=== PATIENT | female | born 1990 | race Caucasian/White ===

== ENCOUNTER 2020-08-11 19:16 | Emergency (ER) | payer OTHER, SELFPAY ==
[2020-08-11] VITALS (12 sets, daily range): BP systolic 130–161; BP diastolic 65–92; PULSE 91–104; RESP 13–33; TEMP 37.1; O2SAT 99–100
--- NOTE | 2020-08-11 19:55 | PC.NURSE ---
provider at bedside. spoke with patient's OB physician.
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
== END 2020-08-11 20:35 | disposition home or self-care (01) ==
PROVIDERS: Emergency Provider Emergency Medicine
DX: O9A.212 Injury, poisoning and certain other consequences of external causes complicating pregnancy, second trimester (principal); S80.12XA Contusion of left lower leg, initial encounter; Z3A.22 22 weeks gestation of pregnancy; V49.40XA Driver injured in collision with unspecified motor vehicles in traffic accident, initial encounter
CPT/HCPCS: 99282

== ENCOUNTER 2020-08-18 11:04 | Observation (INO) | payer OTHER, SELFPAY ==
[2020-08-18 11:20] VITALS: BP 156/78; PULSE 101
[2020-08-18 11:29] VITALS: BMI 34.6
--- NOTE | 2020-08-18 11:30 | OBADM ---
This patient, Jessica Conway, admitted to the OB room OB Post 117 for observation. Patient/family oriented to hospital policies and general routines including ID bracelet, bed and alarms, visiting hours, pain management, procedures, bathroom and other care routines, personal items, smoking policy, room service/diet, and visiting hours. Patient/Family are encouraged to report perceived risks to care and to ask questions if they do not understand what they are told or what they should do.
[2020-08-18 11:31] VITALS: BP 123/73; PULSE 92
[2020-08-18 11:41] LABS: Add Urine Microscopic? YES; Appearance Urine Clear (Clear); Bacteria Urine Trace /hpf; Bilirubin Urine Negative (Negative); Blood Urine Negative (Negative); Calcium Oxalate Crystals Urine Present /hpf; Color Urine Yellow (Yellow); Glucose Urine UA Negative (Negative); Ketones Urine Negative (Negative); Leukocyte Esterase Ur Negative LEU/UL (Negative); Mucus Urine Rare /lpf; Nitrate Urine Negative (Negative); Protein Urine 1+ mg/dL (Negative); RBC Urine 0-2 /hpf (0-2); Specific Grav Ur 1.024 (1.001-1.035); Squamous Epithelial Cell Urine Few /hpf (Few); Urobilinogen Urine Negative mg/dL (<2.0); WBC Urine 0-3 /hpf
[2020-08-18 11:45] VITALS: BP 128/71; PULSE 81
[2020-08-18 11:48] VITALS: BP 128/71; PULSE 84
--- NOTE | 2020-08-18 11:54 | PC.NURSE ---
Dr. Liao notified regarding patient's arrival, complaint, reassuring FHR tracing, absence of contractions, and urinalysis results. Received orders to discharge patient to home and to encourage patient to increase fiber intake and to start taking 100 mg colace BID.
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
--- NOTE | 2020-08-24 06:15 | PM.OBTRLD ---
OB - Triage/Final Diagnosis Visit Information Date of evaluation: 08/20/20 Reason for evaluation: threatened labor Evaluation Laboratory results: Laboratory Tests 08/18/20 11:33 Urine Color Yellow Urine Appearance Clear Urine pH 7.0 Ur Specific [place] 1.024 Urine Protein 1+ H Urine Glucose (UA) Negative Urine Ketones Negative Ur Blood (Man) Negative Urine Nitrate Negative Urine Bilirubin Negative Urine Urobilinogen Negative Leukocyte Esterase Rfl Negative Urine RBC 0-2 Urine WBC 0-3 Ur Squamous Epith Cells Few Calcium Oxalate Crystal Present Urine Bacteria Trace Urine Mucus Rare
== END 2020-08-18 12:10 | disposition home or self-care (01) ==
PROVIDERS: Admitting Provider Obstetrics & Gynecology; Visit Provider Obstetrics & Gynecology
DX: Z04.1 Encounter for examination and observation following transport accident (principal); O26.899 Other specified pregnancy related conditions, unspecified trimester; O47.9 False labor, unspecified; Z3A.00 Weeks of gestation of pregnancy not specified
CPT/HCPCS: 59025; 81001; G0378; G0379

== ENCOUNTER 2020-12-08 05:28 | Inpatient (IN) | payer OTHER, SELFPAY ==
[2020-12-08] VITALS (170 sets, daily range): BP systolic 101–162; BP diastolic 52–135; PULSE 25–262; TEMP 36.7–37.5; O2SAT 72–100; BMI 38.9
--- NOTE | 2020-12-08 05:32 | PM.IMHP ---
H&P: HPI History of Present Illness Date/Time: 12/08/20 05:32 Chief Complaint: mil/gesty htn Narrative: Jessica Conway is a 30 year old female whose last menstrual period was 03/10/2020, EDC is 12/05 confirmed ultrasound presents at term for induction labor. She has had worsening blood pressures. She is negative for group B strep. She will undergo PIH labs with expected spontaneous vaginal delivery. Review of Systems Review of Systems: All systems reviewed & are unremarkable except as noted in HPI and below PMFSH Family History Family History Father Osteoarthritis Alcohol abuse Hypertension Mother Hypertension Diabetes mellitus History of heart attack Sibling Johny's disease Other Patient's mother is Social History Social History Substance use: never Spiritual care concerns: No Meds Home Medications and Allergies Home Medications Medication Instructions Recorded Confirmed Type Daily 08/18/20 History acetaminophen [Tylenol] 1,000 mg PO PRN PRN 08/18/20 08/18/20 History cetirizine [Zyrtec] 10 mg PO DAILY 08/18/20 08/18/20 History famotidine [Pepcid AC] 20 mg PO HS 11/09/20 11/09/20 History Allergies Allergy/AdvReac Type Severity Reaction Status Date / Time No Known Allergies Allergy Verified 11/09/20 12:40 Exam Const: General: no acute distress Eyes: General: appearance normal, both eyes and all related structures Neck: Neck: supple and no JVD Thyroid: thyroid normal Resp: Effort & Inspection: normal respiratory effort Auscultation: clear to auscultation bilaterally Cardio: Rate: regular rate Rhythm: regular rhythm GI: Inspection: non-distended GI Palp: Yes Soft to palpation, No Tenderness to palpation present (GI) and No Guarding due to palpation present (GI) Auscultation: normal bowel sounds : General: Yes bladder normal to palpation External Female Exam: normal external appearance Speculum Exam - Cervix: normal appearance of the cervix ( Cervix is 1cm 50% effaced. FHTs reassuring) Skin: General skin exam: no rashes or lesions noted Extrem: General: normal to inspection and no edema Psych: Mental Status: mental status grossly normal Affect: normal affect Assessment and Plan Additional Plan impression: 39 and half week with elevated blood pressures and suspected gestational hypertension Plan: medical induction of labor. PIH labs will be drawn. Spontaneous vaginal delivery is expected. She has an epidural candidate
--- NOTE | 2020-12-08 05:42 | WPDOBADMIT ---
Obstetrics - Admit Note Admission Note: record reviewed. No pertinent additions to the history and/or any subsequent changes in the physical findings that are not consistent with the expected course of the were found. Additions to the history and/or subsequent changes in the physical findings follow. None. cx 1.5/50/-2 arom clear fhts reassuring
[2020-12-08 06:42] LABS: Basophils Percent Auto 0.2 % (0.2-1.2); Eosinophils Absolute Auto 0.1 K/mm3 (0-0.3); Eosinophils Percent Auto 0.8 % (0-4.4); Hematocrit 33.7 % (37.0-47.0); Hemoglobin 11.3 g/dL (12.0-15.0); Immature Granulocyte Absolute 0.04 K/mm3 (0.00-0.031); Immature Granulocyte Percent A 0.4 % (0-0.5); Lymphocytes Absolute Auto 1.43 K/mm3 (0.9-3.2); Lymphocytes Percent Auto 15.1 % (18.3-44.2); Mean Corpuscular HGB Conc 33.5 g/dl (32-36); Mean Corpuscular Hemoglobin 29.4 pg (26-34); Mean Corpuscular Volume 87.5 fl (80-100); Mean Platelet Volume 10.1 fl (7.4-10.4); Monocytes Absolute Auto 0.5 K/mm3 (0.1-0.6); Neutrophils Absolute Auto 7.4 K/mm3 (1.3-6.7); Neutrophils Percent Auto 78.5 % (45.5-73.1); Platelet Count Result 319 k/mm3 (150-375); Red Blood Count 3.85 M/mm3 (4.2-5.4); Red Cell Distribution Width 14.1 % (11.5-14.5); White Blood Count 9.5 K/mm3 (4.5-10.0)
[2020-12-08 06:50] LABS: Alanine Aminotransferase 16 U/L (4-35); Albumin Level 3.4 g/dL (3.5-5.1); Alkaline Phosphatase 207 U/L (38-126); Anion Gap 9 mmol/L (8-16); Aspartate Amino Transferase 23 U/L (14-36); Bilirubin,Total 0.2 mg/dL (0.2-1.3); Blood Urea Nitrogen 12 mg/dL (7-17); Calcium 8.2 mg/dL (8.4-10.2); Carbon Dioxide 18 mmol/L (22-30); Chloride 107 mmol/L (98-107); Estimated Glomerular Filt Rate > 60; Glucose 151 mg/dL (65-105); Potassium 3.7 mmol/L (3.4-5.0); Sodium 134 mmol/L (137-145)
[2020-12-08] MEDS: OXYTOCIN 30 UNITS/NS 500 ML 30 UNITS/500 ML BAG 6 UNITS IV CONT (07:11)
[2020-12-08] MEDS: LACTATED RINGERS 1,000 ML 125 ML IV CONT ×4 (07:11→18:52)
[2020-12-08 07:21] LABS: Uric Acid 3.7 mg/dL (2.5-7.5)
[2020-12-08 07:30] LABS: HIV 1/2 Ab P24 Ag Result Negative (Negative)
--- NOTE | 2020-12-08 08:58 | LDADM ---
This patient, Jessica Conway, was admitted to Labor/Delivery/Recovery 103 on 12/08/20 at 05:28. Plans for labor, pain management and were discussed with patient. Patient/family oriented to hospital policies and general routines including ID bracelet, bed and alarms, visiting hours, pain management, procedures, bathroom and other care routines, personal items, smoking policy, room service/diet and guest tray routines, infant security routines, call light, and visiting hours. Patient/Family are encouraged to report perceived risks to care and to ask questions if they do not understand what they are told or what they should do. See OBIX for further documentation.
--- NOTE | 2020-12-08 09:27 | WPDANESEPP ---
Anes - Eval Pre Procedure Procedure: labor epidural Date/Time: 12/08/20 09:27 Surgeon: lizbeth ceron Pre Op Diagnosis: Induction of Labor Patient Data Age: 30 Gender: F Height: 1.63 m Weight: 103 kg Last Vital Signs Pulse 99 12/08/20 08:01 BP 127/84 12/08/20 08:01 Allergies Allergy/AdvReac Type Severity Reaction Status Date / Time No Known Allergies Allergy Verified 11/09/20 12:40 Home Medications Medication Instructions Recorded Confirmed Type Daily 08/18/20 History acetaminophen [Tylenol] 1,000 mg PO PRN PRN 08/18/20 08/18/20 History cetirizine [Zyrtec] 10 mg PO DAILY 08/18/20 08/18/20 History famotidine [Pepcid AC] 20 mg PO HS 11/09/20 11/09/20 History Laboratory Tests 12/08/20 12/08/20 12/08/20 06:26 06:26 06:26 WBC 9.5 K/mm3 K/mm3 (4.5-10.0) RBC 3.85 M/mm3 L M/mm3 (4.2-5.4) Hgb 11.3 g/dL L g/dL (12.0-15.0) Hct 33.7 % L % (37.0-47.0) MCV 87.5 fl fl (80-100) MCH 29.4 pg pg (26-34) MCHC 33.5 g/dl g/dl (32-36) RDW 14.1 % % (11.5-14.5) Plt Count 319 k/mm3 k/mm3 (150-375) MPV 10.1 fl fl (7.4-10.4) Immature Gran % (Auto) 0.4 % % (0-0.5) Neut % (Auto) 78.5 % H % (45.5-73.1) Lymph % (Auto) 15.1 % L % (18.3-44.2) [place] % (Auto) 5.0 % % (2.6-8.5) Eos % (Auto) 0.8 % % (0-4.4) Baso % (Auto) 0.2 % % (0.2-1.2) Lymph # (Auto) 1.43 K/mm3 K/mm3 (0.9-3.2) [place] # (Auto) 0.5 K/mm3 K/mm3 (0.1-0.6) Eos # (Auto) 0.1 K/mm3 K/mm3 (0-0.3) Baso # (Auto) 0.0 K/mm3 K/mm3 (0.0-0.1) Abs Immat Gran (auto) 0.04 K/mm3 H K/mm3 (0.00-0.031) Absolute Neuts (auto) 7.4 K/mm3 H K/mm3 (1.3-6.7) Absolute Nucleated RBC 0.0 K/mm3 K/mm3 (0.0-0.012) Nucleated RBC % 0.0 % % (0.0-0.2) Sodium Potassium Chloride Carbon Dioxide Anion Gap BUN Creatinine Estim Creat Clear Calc Estimated GFR Glucose Uric Acid 3.7 mg/dL mg/dL (2.5-7.5) Calcium Total Bilirubin AST ALT Alkaline Phosphatase Total Protein Albumin RPR Pending HIV 1&2 Ab/P24 Ag 4thGn Blood Type Antibody Screen 12/08/20 12/08/20 12/08/20 06:26 06:26 06:26 WBC RBC Hgb Hct MCV MCH MCHC RDW Plt Count MPV Immature Gran % (Auto) Neut % (Auto) Lymph % (Auto) [place] % (Auto) Eos % (Auto) Baso % (Auto) Lymph # (Auto) [place] # (Auto) Eos # (Auto) Baso # (Auto) Abs Immat Gran (auto) Absolute Neuts (auto) Absolute Nucleated RBC Nucleated RBC % Sodium 134 mmol/L L mmol/L (137-145) Potassium 3.7 mmol/L mmol/L (3.4-5.0) Chloride 107 mmol/L mmol/L (98-107) Carbon Dioxide 18 mmol/L L mmol/L (22-30) Anion Gap 9 mmol/L mmol/L (8-16) BUN 12 mg/dL mg/dL (7-17) Creatinine 0.50 mg/dL L mg/dL (0.7-1.0) Estim Creat Clear Calc Not Reportable Estimated GFR > 60 (59 - ) Glucose 151 mg/dL H mg/dL (65-105) Uric Acid Calcium 8.2 mg/dL L mg/dL (8.4-10.2) Total Bilirubin 0.2 mg/dL mg/dL (0.2-1.3) AST 23 U/L U/L (14-36) ALT 16 U/L U/L (4-35) Alkaline Phosphatase 207 U/L H U/L (38-126) Total Protein 7.0 g/dL g/dL (6.3-8.2) Albumin 3.4 g/dL L g/dL (3.5-5.
--- NOTE | 2020-12-08 16:19 | P.PNOB_ITS ---
OB - PN: Subj Subjective Date/time seen: 12/08/20 16:19 cx 4 by rn exam fhts ok/earlier decels gone OB - PN: Obj Data Labs CBC & Chem 7: 12/08/20 06:26 12/08/20 06:26 Labs: Laboratory Results - last 24 hr 12/08/20 12/08/20 12/08/20 06:26 06:26 06:26 WBC 9.5 RBC 3.85 L Hgb 11.3 L Hct 33.7 L MCV 87.5 MCH 29.4 MCHC 33.5 RDW 14.1 Plt Count 319 MPV 10.1 Immature Gran % (Auto) 0.4 Neut % (Auto) 78.5 H Lymph % (Auto) 15.1 L [place] % (Auto) 5.0 Eos % (Auto) 0.8 Baso % (Auto) 0.2 Lymph # (Auto) 1.43 [place] # (Auto) 0.5 Eos # (Auto) 0.1 Baso # (Auto) 0.0 Abs Immat Gran (auto) 0.04 H Absolute Neuts (auto) 7.4 H Absolute Nucleated RBC 0.0 Nucleated RBC % 0.0 Sodium Potassium Chloride Carbon Dioxide Anion Gap BUN Creatinine Estim Creat Clear Calc Estimated GFR Glucose Uric Acid 3.7 Calcium Total Bilirubin AST ALT Alkaline Phosphatase Total Protein Albumin HIV 1&2 Ab/P24 Ag 4thGn Negative Blood Type Antibody Screen 12/08/20 12/08/20 06:26 06:26 WBC RBC Hgb Hct MCV MCH MCHC RDW Plt Count MPV Immature Gran % (Auto) Neut % (Auto) Lymph % (Auto) [place] % (Auto) Eos % (Auto) Baso % (Auto) Lymph # (Auto) [place] # (Auto) Eos # (Auto) Baso # (Auto) Abs Immat Gran (auto) Absolute Neuts (auto) Absolute Nucleated RBC Nucleated RBC % Sodium 134 L Potassium 3.7 Chloride 107 Carbon Dioxide 18 L Anion Gap 9 BUN 12 Creatinine 0.50 L Estim Creat Clear Calc Not Reportable Estimated GFR > 60 Glucose 151 H Uric Acid Calcium 8.2 L Total Bilirubin 0.2 AST 23 ALT 16 Alkaline Phosphatase 207 H Total Protein 7.0 Albumin 3.4 L HIV 1&2 Ab/P24 Ag 4thGn Blood Type O Positive Antibody Screen Negative OB - PN A/P Time Spent With Patient Time: Total time spent is greater than 50% in coordination of care (as documente d) at patient's floor/unit and/or counseling patient:
--- NOTE | 2020-12-08 18:26 | PC.NURSE ---
Cheryl Baig RN reported new LR liter bag hung at 1540. (bag #3)
[2020-12-08] MEDS: ONDANSETRON INJ 4 MG/2 ML VIAL IV PUSH (19:04)
[2020-12-08] MEDS: SODIUM CHLORIDE 0.9% IV 300 ML 600 ML I-UTERINE (19:33)
[2020-12-08] MEDS: SODIUM CHLORIDE 0.9% IV 1,000 ML 150 ML I-UTERINE (20:15)
[2020-12-08] MEDS: FAMOTIDINE 20 MG/2 ML VIAL IV PUSH (22:41)
[2020-12-09] VITALS (57 sets, daily range): BP systolic 117–140; BP diastolic 59–84; PULSE 94–118; RESP 16–20; TEMP 36.3–38.1; O2SAT 97–100
[2020-12-09] MEDS: AMPICILLIN 2 GM/NS 100 ML 2 GM/100 ML BAG IVPB (00:30)
--- NOTE | 2020-12-09 01:36 | P.PNOB_ITS ---
OB - PN: Subj Subjective Date/time seen: 12/09/20 01:36 cx 8 no further change despite good ucs offered section risks/benefits given OB - PN: Obj Data Labs CBC & Chem 7: 12/08/20 06:26 12/08/20 06:26 Labs: Laboratory Results - last 24 hr 12/08/20 12/08/20 12/08/20 06:26 06:26 06:26 WBC 9.5 RBC 3.85 L Hgb 11.3 L Hct 33.7 L MCV 87.5 MCH 29.4 MCHC 33.5 RDW 14.1 Plt Count 319 MPV 10.1 Immature Gran % (Auto) 0.4 Neut % (Auto) 78.5 H Lymph % (Auto) 15.1 L [place] % (Auto) 5.0 Eos % (Auto) 0.8 Baso % (Auto) 0.2 Lymph # (Auto) 1.43 [place] # (Auto) 0.5 Eos # (Auto) 0.1 Baso # (Auto) 0.0 Abs Immat Gran (auto) 0.04 H Absolute Neuts (auto) 7.4 H Absolute Nucleated RBC 0.0 Nucleated RBC % 0.0 Sodium Potassium Chloride Carbon Dioxide Anion Gap BUN Creatinine Estim Creat Clear Calc Estimated GFR Glucose Uric Acid 3.7 Calcium Total Bilirubin AST ALT Alkaline Phosphatase Total Protein Albumin HIV 1&2 Ab/P24 Ag 4thGn Negative Blood Type Antibody Screen 12/08/20 12/08/20 06:26 06:26 WBC RBC Hgb Hct MCV MCH MCHC RDW Plt Count MPV Immature Gran % (Auto) Neut % (Auto) Lymph % (Auto) [place] % (Auto) Eos % (Auto) Baso % (Auto) Lymph # (Auto) [place] # (Auto) Eos # (Auto) Baso # (Auto) Abs Immat Gran (auto) Absolute Neuts (auto) Absolute Nucleated RBC Nucleated RBC % Sodium 134 L Potassium 3.7 Chloride 107 Carbon Dioxide 18 L Anion Gap 9 BUN 12 Creatinine 0.50 L Estim Creat Clear Calc Not Reportable Estimated GFR > 60 Glucose 151 H Uric Acid Calcium 8.2 L Total Bilirubin 0.2 AST 23 ALT 16 Alkaline Phosphatase 207 H Total Protein 7.0 Albumin 3.4 L HIV 1&2 Ab/P24 Ag 4thGn Blood Type O Positive Antibody Screen Negative OB - PN A/P Time Spent With Patient Time: Total time spent is greater than 50% in coordination of care (as documented) at patient's floor/unit and/or counseling patient:
[2020-12-09] MEDS: ceFAZolin 2 GM/D5W 50 ML 2 GM/50 ML BAG IVPB (01:40)
--- NOTE | 2020-12-09 02:29 | PM.PROC ---
Procedure Note - Detailed Date of procedure: 12/09/20 Pre-op diagnosis: Induction of Labor Surgeon: Victoriano Liao MD Postop diagnosis: Failure to progress Procedure: Primary low transverse section EBL: 805cc Anesthesia: Epidural Findings: Male infant 8 lb 13 oz Complications none Description of procedure: The patient was admitted for induction of labor on 02/05 a.m. She along the of labor and got to 7 8cm be could get no further. Despite adequate uterine contractions proven by intrauterine pressure catheter she did not progress further. She was offered section. After obtaining informed consent she was taken the vacuum prepped and draped in the normal sterile fashion placed in the supine position. Under excellent epidural anesthesia the abdomen was entered in a Pfannenstiel fashion progressive layers to the fascia. Fascia incised midline and upward outward fashion bilaterally. Underlying muscles were sharply dissected the parietal peritoneum elevated Dilcia clamps. This was opened sharply superiorly and inferiorly dome of the bladder. Bladder blade was placed. A bladder flap was formed. The bladder blade returned. A low-transverse incision made the head delivered in the MIKI position. Anterior posterior shoulder delivered spontaneously. Cord clamped x2 and cut and infant passed off the table with cry. Placenta was delivered intact manually. Uterus delivered from the abdomen and wrapped in a moist towel. After assuring no membranes were debris remained in the uterus uterus was closed with continuous running locking 0 Vicryl from lateral edge to lateral edge. This was followed by a 2nd imbricating running locking 0 Vicryl from lateral edge to lateral edge there was a fairly large in the sinus that was present then and anteriorly then necessitated 3 figure of 8 sutures. Hemostasis was assured. The ovaries and tubes appeared within normal limits in the uterus returned the abdomen. The uterine incision inspected 1 last time and noted be hemostatic. [place] derm was placed over the raw surface area. The laps removed and accounted for. The fascia closed with continuous running 0 Vicryl from lateral edge to midline bilaterally. Irrigation of the subcutaneous layer and the skin closed with 4 O Monocryl and glue. Patient was taken to recovery. All sponge, needle, instrument counts were correct. There were no immediate complications.
[2020-12-09] MEDS: fentaNYL CITRATE INJ (*CRX) 100 MCG/2 ML VIAL 50 MCG IV PUSH (03:44)
[2020-12-09] MEDS: HYDROmorphone HCL INJ (*CRX) 1 MG/ML SYR 0.5 MG IV PUSH (04:26)
[2020-12-09] MEDS: OXYTOCIN 30 UNITS/NS 500 ML 30 UNITS/500 ML BAG 125 UNITS IV CONT (05:17)
--- NOTE | 2020-12-09 05:41 | OBPPTRN ---
Patient transferred to post room #288 via stretcher. Support person present. Oriented to unit, room, information board, rooming in, admission packet and security measures. Patient verbalizes understanding.
--- NOTE | 2020-12-09 07:37 | WPDANLDPN2 ---
Anes-Prog Note L&D Date/Time: 12/09/20 07:37 Comfortable throughout: labor and section Neuraxial method: epidural Epidural/Spinal procedure site: clean & non-tender Neuro status: Neuro function grossly intact. Cardiovascular status: normal Respiratory status: normal Airway patency: baseline Mental status: baseline Post-Op hydration status: normal Vital Signs: Last Vital Signs Temp 36.6 C 12/09/20 04:50 Pulse 105 H 12/09/20 04:50 Resp 16 12/09/20 04:50 BP 126/80 12/09/20 04:50 Pulse Ox 100 12/09/20 04:50 Pain score (VAS): 0 I/O: Intake & Output 12/08/20 12/08/20 12/09/20 15:59 23:59 07:59 Intake Total 1999 1100 1150 Output Total 250 Balance 1999 1100 900 Post-procedural complaints: pruritis Patient feedback: Patient satisfied with anesthetic care.
--- NOTE | 2020-12-09 07:38 | WPDANLDNPN2 ---
Anes-Prog Note L&D-Neuraxial Date/Time: 12/09/20 07:38 Neuraxial medications: epidural PF morphine Opiod-related complaints: pruritis Patient feedback: Patient satisfied with post-operative pain management.
[2020-12-09] MEDS: MULTIVIT/MIN/PREN/FOL AC/IRON TABLET 1 TAB PO (08:47)
[2020-12-09] MEDS: DOCUSATE SODIUM 100 MG CAPSULE PO ×2 (08:48→17:30)
[2020-12-09] MEDS: LORATADINE 10 MG TABLET PO (08:48)
[2020-12-09] MEDS: KETOROLAC 30 MG/ML VIAL (*BKC) IV PUSH (09:09)
[2020-12-09] MEDS: DEXTROSE 5%/0.45% SOD CHL 1,000 ML 125 ML IV CONT (09:50)
--- NOTE | 2020-12-09 12:21 | PC.NURSE ---
1220-Patient to 1st floor nursery to see her baby. IV fluids running. Patient tolerated well.
[2020-12-09] MEDS: HYDROcodone/acetaminophen (*CRX) 5-325 MG TABLET 1 TAB PO ×2 (13:03→17:28)
[2020-12-09 13:09] LABS: Rapid Plasma Reagin Non-Reactive (NonReactive)
--- NOTE | 2020-12-09 13:51 | PC.NURSE ---
1300-Patient returned to floor from seeing baby in 1st floor nursery. Patient tolerated fine.
[2020-12-09] MEDS: IBUPROFEN 600 MG TABLET PO (17:29)
[2020-12-09] MEDS: diphenhydrAMINE HCl CAP 25 MG CAPSULE PO (20:20)
[2020-12-09] MEDS: HYDROcodone/acetaminophen (*CRX) 10-325 MG TABLET 1 TAB PO (20:57)
[2020-12-10] MEDS: HYDROcodone/acetaminophen (*CRX) 10-325 MG TABLET 1 TAB PO ×2 (01:00→05:12)
[2020-12-10] MEDS: IBUPROFEN 600 MG TABLET PO ×4 (01:00→23:06)
[2020-12-10 05:26] LABS: Basophils Absolute Auto 0.1 K/mm3 (0.0-0.1); Basophils Percent Auto 0.3 % (0.2-1.2); Eosinophils Absolute Auto 0.1 K/mm3 (0-0.3); Eosinophils Percent Auto 0.4 % (0-4.4); Hematocrit 27.4 % (37.0-47.0); Hemoglobin 8.8 g/dL (12.0-15.0); Immature Granulocyte Absolute 0.17 K/mm3 (0.00-0.031); Lymphocytes Absolute Auto 1.15 K/mm3 (0.9-3.2); Lymphocytes Percent Auto 6.7 % (18.3-44.2); Mean Corpuscular HGB Conc 32.1 g/dl (32-36); Mean Corpuscular Volume 90.4 fl (80-100); Mean Platelet Volume 10.1 fl (7.4-10.4); Monocytes Percent Auto 5.6 % (2.6-8.5); Neutrophils Absolute Auto 14.8 K/mm3 (1.3-6.7); Platelet Count Result 235 k/mm3 (150-375); Red Blood Count 3.03 M/mm3 (4.2-5.4); Red Cell Distribution Width 14.5 % (11.5-14.5); White Blood Count 17.2 K/mm3 (4.5-10.0)
--- NOTE | 2020-12-10 05:55 | P.PNOB_ITS ---
OB - PN: Subj Subjective Date/time seen: 12/10/20 05:55 Patient comments: no complaints and pain well controlled baby status: doing well and nursing well OB - PN: Obj Data Labs CBC & Chem 7: 12/08/20 06:26 12/08/20 06:26 Labs: Laboratory Results - last 24 hr 12/08/20 06:26 RPR Non-reactive OB - PN A/P Plan day: 1 Plan: routine care Time Spent With Patient Time: Total time spent is greater than 50% in coordination of care (as documented) at patient's floor/unit and/or counseling patient: Time with patient: less than 15 minutes Review of Systems Review of Systems: All systems reviewed & are unremarkable except as noted in HPI and below Exam Const: General: no acute distress Eyes: General: appearance normal, both eyes and all related structures Neck: Neck: supple and no JVD Thyroid: thyroid normal Resp: Effort & Inspection: normal respiratory effort Auscultation: clear to auscultation bilaterally Cardio: Rate: regular rate Rhythm: regular rhythm GI: Inspection: non-distended GI Palp: Yes Soft to palpation, No Tenderness to palpation present (GI) and No Guarding due to palpation present (GI) Auscultation: normal bowel sounds : External Female Exam: normal external appearance Bimanual exam- vagina & uterus: uterine size normal ( uterus firm well below the umbilicus. Wound dany an dry and intact) Skin: General skin exam: no rashes or lesions noted Extrem: General: normal to inspection and no edema Psych: Mental Status: mental status grossly normal Affect: normal affect
[2020-12-10 07:20] VITALS: BP 121/72; PULSE 96; RESP 16; TEMP 36.2
[2020-12-10] MEDS: DOCUSATE SODIUM 100 MG CAPSULE PO ×2 (09:36→16:22)
[2020-12-10] MEDS: MULTIVIT/MIN/PREN/FOL AC/IRON TABLET 1 TAB PO (09:36)
[2020-12-10] MEDS: POLYSACCHARIDE IRON COMPLEX 150 MG CAPSULE PO ×2 (09:36→16:22)
[2020-12-10] MEDS: HYDROcodone/acetaminophen (*CRX) 5-325 MG TABLET 1 TAB PO ×4 (09:36→23:06)
--- NOTE | 2020-12-10 12:07 | WPDANLDPN2 ---
Anes-Prog Note L&D Date/Time: 12/10/20 12:07 Comfortable throughout: labor and section Neuraxial method: epidural Epidural/Spinal procedure site: clean & non-tender Neuro status: Neuro function grossly intact. Cardiovascular status: normal Respiratory status: normal Airway patency: baseline Mental status: baseline Post-Op hydration status: normal Vital Signs: Last Vital Signs Temp 36.2 C L 12/10/20 07:20 Pulse 96 12/10/20 07:20 Resp 16 12/10/20 07:20 BP 121/72 12/10/20 07:20 Pulse Ox 99 12/09/20 23:45 Pain score (VAS): 0/10. Patient resting up to bedside chair at time of assessment, appears comfortable. RN at bedside. I/O: Intake & Output 12/09/20 12/10/20 12/10/20 23:59 07:59 15:59 Intake Total 700 Output Total 500 Balance 200 Post-procedural complaints: pruritis (relief with PRN benadryl ) Patient feedback: Patient satisfied with anesthetic care.
--- NOTE | 2020-12-10 12:08 | WPDANLDNPN2 ---
Anes-Prog Note L&D-Neuraxial Date/Time: 12/10/20 12:08 Neuraxial medications: epidural PF morphine Opiod-related complaints: pruritis moderate, treatment effective Patient feedback: Patient satisfied with post-operative pain management.
[2020-12-10 14:30] VITALS: BP 139/79; PULSE 91; RESP 18; TEMP 36.5; O2SAT 100
--- NOTE | 2020-12-10 14:43 | PC.NURSE ---
Breast pump provided due to being at [facility]. Instructions given on breast pump care and usage, pumping schedule, nipple care, and collection and storage of breast milk. Encouraged [id number] when with infant, breast massage and manual expression to stimulate supply. Pumping log provided and reviewed. Assessed patient for correct flange size, placement and draw. Patient verbalizes and demonstrates understanding of instructions.
[2020-12-10 20:00] VITALS: BP 135/86; PULSE 103; RESP 16; TEMP 37; O2SAT 100
[2020-12-11] MEDS: HYDROcodone/acetaminophen (*CRX) 5-325 MG TABLET 1 TAB PO ×3 (03:05→11:50)
[2020-12-11] MEDS: IBUPROFEN 600 MG TABLET PO ×2 (06:13→11:51)
[2020-12-11 07:15] VITALS: BP 140/88; PULSE 101; RESP 16; RESP 18; TEMP 36; O2SAT 100
[2020-12-11] MEDS: DOCUSATE SODIUM 100 MG CAPSULE PO (08:25)
[2020-12-11] MEDS: MULTIVIT/MIN/PREN/FOL AC/IRON TABLET 1 TAB PO (08:26)
[2020-12-11] MEDS: POLYSACCHARIDE IRON COMPLEX 150 MG CAPSULE PO (08:26)
--- NOTE | 2020-12-11 09:25 | PM.DS ---
DS: Admitting Diagnosis Admitting Diagnosis Admitting Diagnosis: term iup/ DS: Summary Hospital Course Hospital Course: The patient was admitted for induction of labor. She failed to progress and underwent low-transverse section. The baby was transferred due to possible meconium aspiration. Her course was unremarkable and she remained afebrile. She was up, voiding without difficulty, passing gas, eating, ambulating, in general without complaints Time Spent with Patient Time attestation: Total time spent providing and/or coordinating discharge services: Exam Const: General: no acute distress Eyes: General: appearance normal, both eyes and all related structures Neck: Neck: supple and no JVD Thyroid: thyroid normal Resp: Effort & Inspection: normal respiratory effort Auscultation: clear to auscultation bilaterally Cardio: Rate: regular rate Rhythm: regular rhythm GI: Inspection: non-distended GI Palp: Yes Soft to palpation, No Tenderness to palpation present (GI) and No Guarding due to palpation present (GI) Auscultation: normal bowel sounds : General: Yes bladder normal to palpation External Female Exam: normal external appearance Speculum Exam - Vagina: normal vaginal discharge and No vaginal bleeding Speculum Exam - Cervix: nontender Bimanual exam- vagina & uterus: bladder normal to palpation and No Cervical tenderness present OB/external & speculum: No vaginal bleeding Skin: General skin exam: no rashes or lesions noted Extrem: General: normal to inspection and no edema Psych: Mental Status: mental status grossly normal Affect: normal affect Discharge Plan Discharge Attending physician on discharge: Victoriano Liao Discharging Clinician: Victoriano Liao Patient Disposition: Home, Self-Care Activity: may shower, no straining, may drive after 2 weeks and pelvic rest Diet: heart healthy Wound Care Instructions: follow printed instructions Patient Instructions: Antibiotic Form Stand Alone Forms: General Discharge Information Follow-up/Referrals: Victoriano Liao MD [Physician] - Discharge Medications: New hydrocodone-acetaminophen 5-300 mg tablet 1 tablet PO Q6H PRN (Reason: pain) Qty: 30 RF: 0 Continued acetaminophen [Tylenol] 325 mg Tablet 1,000 mg PO PRN PRN (Reason: Pain) RF: 0 cetirizine [Zyrtec] 10 mg Tablet 10 mg PO DAILY RF: 0 Daily RF: 0 famotidine [Pepcid AC] 20 mg Tablet 20 mg PO HS RF: 0 Date of admission: 12/08/20 05:28 Primary Care Provider: PHYSICIAN,EXPERIMENTAL ROCKETSLED MECHANIC Admitting Provider: Victoriano Liao Attending physician on admission: Victoriano Liao Condition: Stable
--- NOTE | 2020-12-11 09:28 | P.PNOB_ITS ---
OB - PN: Subj Subjective Date/time seen: 12/11/20 09:28 Patient comments: no complaints and pain well controlled OB - PN: Obj Data Labs CBC & Chem 7: 12/10/20 05:11 12/08/20 06:26 OB - PN A/P Plan day: 2 Plan: routine care, discharge home and follow up 6 weeks (4 weeks) Time Spent With Patient Time: Total time spent is greater than 50% in coordination of care (as documented) at patient's floor/unit and/or counseling patient: Time with patient: less than 15 minutes Review of Systems Review of Systems: All systems reviewed & are unremarkable except as noted in HPI and below Exam Const: General: no acute distress Eyes: General: appearance normal, both eyes and all related structures Neck: Neck: supple and no JVD Thyroid: thyroid normal Resp: Effort & Inspection: normal respiratory effort Auscultation: clear to auscultation bilaterally Cardio: Rate: regular rate Rhythm: regular rhythm GI: Inspection: non-distended GI Palp: Yes Soft to palpation, No Tenderness to palpation present (GI) and No Guarding due to palpation present (GI) Auscultation: normal bowel sounds : General: Yes bladder normal to palpation External Female Exam: normal external appearance Speculum Exam - Vagina: normal vaginal discharge and No v aginal bleeding Speculum Exam - Cervix: nontender Bimanual exam- vagina & uterus: bladder normal to palpation and No Cervical tenderness present OB/external & speculum: No vaginal bleeding Skin: General skin exam: no rashes or lesions noted Extrem: General: normal to inspection and no edema Psych: Mental Status: mental status grossly normal Affect: normal affect
--- NOTE | 2020-12-11 09:42 | PC.NURSE ---
Spoke with mom, denies having any questions regarding pumping. Mom pumping every 3 hours, able to pump approx 1 ml per session via hospital grade pump.
--- NOTE | 2020-12-11 10:02 | PC.NURSE ---
Patient viewed the discharge video Mother & Baby Care, The First Two Weeks . Patient was given the opportunity and encouraged to ask questions. Patient verbalized understanding of information shared and has been given the mother/baby guide for home reference.
[2020-12-12 11:06] VITALS: BP 153/82; PULSE 85; RESP 20; TEMP 36.6; O2SAT 100
== END 2020-12-11 12:20 | disposition home or self-care (01) | DRG 788 ==
LOC: ANHLDR 12-09 02:18 → ANHOB2 12-09 05:31
PROVIDERS: Admitting Provider Obstetrics & Gynecology; Visit Provider Obstetrics & Gynecology
PROC: 10D00Z1 Extraction of Products of Conception, Low, Open Approach (ICD-10-PCS; CPT 59514; principal; 2020-12-09 01:30)
DX: O13.4 Gestational [pregnancy-induced] hypertension without significant proteinuria, complicating childbirth (principal); Z37.0 Single live birth; Z3A.39 39 weeks gestation of pregnancy; O62.0 Primary inadequate contractions; O36.8330 Maternal care for abnormalities of the fetal heart rate or rhythm, third trimester, not applicable or unspecified; O77.0 Labor and delivery complicated by meconium in amniotic fluid
CPT/HCPCS: 36415; 80053; 84550; 85025; 86592; 86703; 86850; 86900; 86901; A9270; G0432; J0131; J0290; J0690; J1170; J1885; J2175; J2274; J2405; J2590; J2795; J3010; J7030; J7120

== ENCOUNTER 2020-12-12 11:38 | Outpatient (CLI) | payer OTHER, SELFPAY ==
[2020-12-12 12:07] VITALS: BP 150/82; PULSE 100
[2020-12-12 12:19] LABS: Basophils Percent Auto 0.5 % (0.2-1.2); Eosinophils Absolute Auto 0.2 K/mm3 (0-0.3); Eosinophils Percent Auto 2.3 % (0-4.4); Hematocrit 26.5 % (37.0-47.0); Hemoglobin 8.6 g/dL (12.0-15.0); Immature Granulocyte Absolute 0.04 K/mm3 (0.00-0.031); Immature Granulocyte Percent A 0.5 % (0-0.5); Lymphocytes Absolute Auto 1.49 K/mm3 (0.9-3.2); Mean Corpuscular HGB Conc 32.5 g/dl (32-36); Mean Corpuscular Volume 89.2 fl (80-100); Mean Platelet Volume 9.3 fl (7.4-10.4); Monocytes Absolute Auto 0.6 K/mm3 (0.1-0.6); Monocytes Percent Auto 7.4 % (2.6-8.5); Neutrophils Absolute Auto 5.2 K/mm3 (1.3-6.7); Neutrophils Percent Auto 69.3 % (45.5-73.1); Platelet Count Result 342 k/mm3 (150-375); Red Blood Count 2.97 M/mm3 (4.2-5.4); Red Cell Distribution Width 14.1 % (11.5-14.5); White Blood Count 7.5 K/mm3 (4.5-10.0)
[2020-12-12] MEDS: NIFEdipine 30 MG TAB.ER.24 PO (12:21)
[2020-12-12 12:22] VITALS: RESP 15; TEMP 36.7
[2020-12-12 12:23] VITALS: BP 140/85; PULSE 108
[2020-12-12 12:31] VITALS: BP 136/79; PULSE 103
[2020-12-12 12:33] LABS: Alanine Aminotransferase 28 U/L (4-35); Albumin Level 2.9 g/dL (3.5-5.1); Alkaline Phosphatase 121 U/L (38-126); Anion Gap 2 mmol/L (8-16); Aspartate Amino Transferase 42 U/L (14-36); Bilirubin,Total 0.2 mg/dL (0.2-1.3); Blood Urea Nitrogen 9 mg/dL (7-17); Calcium 8.3 mg/dL (8.4-10.2); Carbon Dioxide 27 mmol/L (22-30); Chloride 108 mmol/L (98-107); Estimated Glomerular Filt Rate > 60; Glucose 83 mg/dL (65-105); Potassium 3.5 mmol/L (3.4-5.0); Sodium 137 mmol/L (137-145); Uric Acid 4.3 mg/dL (2.5-7.5)
[2020-12-12 12:46] VITALS: BP 146/73; PULSE 95
== END 2020-12-12 13:06 | disposition home or self-care (01) ==
LOC: ANHOBOP 11:49 → ANHOBPP 11:50
PROVIDERS: Student in an Organized Health Care Education/Training Program; Visit Provider Obstetrics & Gynecology
DX: O13.3 Gestational [pregnancy-induced] hypertension without significant proteinuria, third trimester (principal); Z3A.00 Weeks of gestation of pregnancy not specified
CPT/HCPCS: 36415; 80053; 84550; 85025; 99199; A9270

== ENCOUNTER 2020-12-13 06:55 | Inpatient (IN) | payer OTHER, SELFPAY ==
[2020-12-13] VITALS (24 sets, daily range): BP systolic 133–175; BP diastolic 70–95; PULSE 80–112; RESP 14–16; TEMP 36.2–37.2; O2SAT 100
--- NOTE | ~2020-12-13 | MR_ITS ---
EXAMINATION: MR MRCP wo/w con/w 3D wo ind DATE: 12/15/2020 07:36 INDICATION: Right upper quadrant abdominal pain. Abnormal liver function tests. TECHNIQUE: Magnetic resonance imaging (MRI) of the abdomen was performed without and with 19 mL Multi Jose intravenous contrast. Sequences included coronal T2-weighted FS FSE, coronal T2-weighted FSE, a xial T1-weighted LAVA, coronal FS FIESTA, axial dual-echo T1-weighted SPGR, coronal lava-FLEX, sagitt al T2-weighted FSE, axial T2-weighted FSE, and axial DWI. Thick-slab T2-weighted FSE images were obta ined for magnetic resonance cholangiopancreatography (MRCP). Maximum intensity projection 3-D reconst ructions of the volumetric data were created by the technologist. Postcontrast sequences included cor onal LAVA-flex and time course of axial T1-weighted LAVA. COMPARISON: Abdomen ultrasound 12/13/2020, CT abdomen and pelvis 12/13/2020 FINDINGS: ABDOMEN MRI: The liver is normal. The gallbladder is distended. The spleen, pancreas, adrenal glands, and kidneys are normal. There are no dilated loops of bowel. The uterus is enlarged, consistent with recent . There are no pathologically enlarged lymph nodes. There is no free intraperitoneal fluid. There is metal artifact in the ascending colon that correlates with a 14 mm int[address]um[address] clip by CT. ABDOMEN MRCP: The common duct is normal and measures 4 mm. No choledocholithiasis. IMPRESSION: 1. Gallbladder distention, which may be secondary to fasting. Reviewed, dictated and finalized at location A. AT CRYPTOLOGIC MANAGER
--- NOTE | ~2020-12-13 | US_ITS ---
US abdomen limited DATE: 12/13/2020 12:05 INDICATION: Right upper quadrant abdominal pain TECHNIQUE: Real-time imaging of liver, pancreas, gallbladder areas COMPARISON: December 13, 2020 CT abdomen pelvis FINDINGS: No hepatic or pancreatic space-occupying mass lesion is evident. Normal hepatopedal portal venous flow direction. No gallstones or gallbladder wall thickening or pericholecystic fluid collection. The common bile gt t measures 3 mm, normal. IMPRESSION: No significant abnormality Reviewed, dictated and finalized at Location [facility]. Reviewed, dictated and finalized at location A. OGRAPHER TECHNOLOGIST IMPRESSION: No significant abnormality
--- NOTE | ~2020-12-13 | CT_ITS ---
EXAMINATION: CT abdomen pelvis w con DATE: 12/13/2020 08:41 INDICATION: Right upper quadrant abdominal pain TECHNIQUE: Computed tomography (CT) of the abdomen and pelvis was performed with 100 cc Omnipaque 350 intravenous contrast. Automated exposure control and iterative reconstruction technique were employe d. Exam dose: 757.72 mGy-cm total exam DLP. COMPARISON: None. FINDINGS: The lung bases are clear. Normal heart size. No pericardial or pleural effusion. Very small posterior right hepatic cyst. The liver is otherwise unremarkable. The gallbladder is dist ended. No gallbladder wall thickening or pericholecystic fluid or fat stranding is noted. No bile gt t or pancreatic duct dilatation. No pancreatic mass lesion or calcification. Spleen is within upper l imits of normal at approximately 11.8 cm vertical dimension. Normal morphology of the adrenal glands. No renal mass lesion. No urinary tract calculus or hydroureteronephrosis. Normal caliber of the abdominal aorta. No intraperitoneal or retroperitoneal or pelvic mass lesion or adenopathy or ascites. No bowel obstruction, bowel wall thickening, pneumatosis or intraperitoneal free air. The uterus is p rominently enlarged, measuring up to 17.5 cm height, 7.4 cm AP dimension. IMPRESSION: Nonspecific gallbladder distention; consider gallbladder ultrasound for further evaluati on given the history of right upper quadrant abdominal pain Prominent uterine enlargement Reviewed, dictated and finalized at Location [facility]. Reviewed, dictated and finalized at location A. POLISH BRUSH MACHINE FEEDER IMPRESSION: Nonspecific gallbladder distention; consider gallbladder ultrasoun d for further evaluation given the history of right upper quadrant abdominal pa in Prominent uterine enlargement
--- NOTE | 2020-12-13 07:06 | ED.ABDPAIN ---
HPI - Abdominal Pain General Chief Complaint: Abdominal Pain Stated Complaint: RUQ pain Time Seen by Provider: 12/13/20 07:03 History of Present Illness HPI narrative: RUQ pain for the past 3 weeks. Constant with severe paroxysms. No obvious inciting factors. Harsh stokes she was . last week. She was also being treated for gestational htn which has been worse recently. She sees Dr. soriano. Related Data Home Medications Medication Instructions Recorded Confirmed Daily 08/18/20 acetaminophen [Tylenol] 1,000 mg PO PRN PRN 08/18/20 08/18/20 cetirizine [Zyrtec] 10 mg PO DAILY 08/18/20 08/18/20 famotidine [Pepcid AC] 20 mg PO HS 11/09/20 11/09/20 Allergies Allergy/AdvReac Type Severity Reaction Status Date / Time No Known Allergies Allergy Verified 12/13/20 07:08 Review of Systems Review of Systems: All systems reviewed & are unremarkable except as noted in HPI and below Constitutional: Constitutional: Reports fever(s) and Reports weakness Eyes: Eyes: Reports no additional eye complaints Cardiovascular: Cardiovascular: Reports no additional cardiovascular complaints Respiratory: Respiratory: Denies dyspnea Gastrointestinal: Gastrointestinal: Reports abdominal pain and Reports nausea Genitourinary: Genitourinary: Denies dysuria Neurologic: Denies dizziness and Denies weakness [facility] Past Medical History Medical History Elevated liver enzymes Gallbladder colic RUQ pain Family History Family History Father Osteoarthritis Alcohol abuse Hypertension Mother Hypertension Diabetes mellitus History of heart attack Sibling Johny's disease Other Patient's mother is Social History Social History Smoking status: Never smoker Substance use: never Spiritual care concerns: No Exam Const: General: healthy appearing, no acute distress and alert Orientation/consciousness: patient oriented x3 HENMT: Head: normal to inspection Neck: Neck: normal visual inspection and no lymphadenopathy Chest: Chest palpation & inspection: no tenderness Resp: Effort & Inspection: normal respiratory effort Auscultation: clear to auscultation bilaterally, no rales, no rhonchi and no wheezes Cardio: Jugular venous distension: no JVD Rate: regular rate Rhythm: regular rhythm Heart sounds: no murmurs GI: Inspection: non-distended GI Palp: Yes Soft to palpation and Yes Tenderness to palpation present (GI) (RUQ/epigastrium) Skin: General skin exam: normal color Neuro: General: patient oriented x3 and moves all extremities Speech: normal speech Extrem: General: no edema Psych: Appearance: well kempt Affect: normal affect Course Vital Signs Vital signs: Vital Signs Temperature 36.4 C L 12/13/20 06:59 Pulse Rate 112 H 12/13/20 06:59 Respiratory Rate 16 12/13/20 06:59 Blood Pressure 175/95 H 12/13/20 06:59 Pulse Oximetry 100 12/13/20 06:59 Temperature 36.6 C 12/15/20 11:13 Pulse Rate 67 12/15/20 11:13 Respiratory Rate 16 12/15/20 11:13 Blood Pressure 147/78 H 12/15/20 11:13 Pulse Oximetry 100 12/13/20 08:30 MDM - Abdominal Pain MDM Narrative Medical decision making narrative: After my initial evaluation OB called and said that the patient was supposed to go directly to them and that she had come to the ED by mistake. She was taken to OB before I could complete the visit. they said that they would take responsibility for the results of the testing done up to this point. Differential Diagnosis Differential diagnosis: Likely calculus of kidney, constipation, gastroenteritis, pancreatitis and other (Cholecystitis, colic, PUD, GERD) Medical Records Attestation: I reviewed the patient's medical records. Lab Data Attestation: I reviewed the patient's lab resu
[2020-12-13 07:33] LABS: Add Urine Microscopic? YES; Appearance Urine Clear (Clear); Bacteria Urine Trace /hpf; Basophils Absolute Auto 0.1 K/mm3 (0.0-0.1); Basophils Percent Auto 0.7 % (0.2-1.2); Bilirubin Urine Negative (Negative); Blood Urine 3+ (Negative); Color Urine Straw (Yellow); Eosinophils Absolute Auto 0.2 K/mm3 (0-0.3); Eosinophils Percent Auto 3.2 % (0-4.4); Glucose Urine UA Negative (Negative); Hematocrit 32.7 % (37.0-47.0); Hemoglobin 10.4 g/dL (12.0-15.0); Immature Granulocyte Absolute 0.05 K/mm3 (0.00-0.031); Immature Granulocyte Percent A 0.7 % (0-0.5); Ketones Urine Trace mg/dL (Negative); Leukocyte Esterase Ur 3+ LEU/UL (Negative); Lymphocytes Absolute Auto 1.23 K/mm3 (0.9-3.2); Lymphocytes Percent Auto 16.9 % (18.3-44.2); Mean Corpuscular HGB Conc 31.8 g/dl (32-36); Mean Corpuscular Hemoglobin 28.2 pg (26-34); Mean Corpuscular Volume 88.6 fl (80-100); Mean Platelet Volume 9.2 fl (7.4-10.4); Monocytes Absolute Auto 0.7 K/mm3 (0.1-0.6); Mucus Urine Rare /lpf; Neutrophils Absolute Auto 5.1 K/mm3 (1.3-6.7); Neutrophils Percent Auto 69.5 % (45.5-73.1); Nitrate Urine Negative (Negative); Platelet Count Result 425 k/mm3 (150-375); Protein Urine Negative (Negative); Red Blood Count 3.69 M/mm3 (4.2-5.4); Red Cell Distribution Width 13.7 % (11.5-14.5); Squamous Epithelial Cell Urine Many /hpf (Few); Urobilinogen Urine Negative mg/dL (<2.0); WBC Urine 31-50 /hpf; White Blood Count 7.3 K/mm3 (4.5-10.0)
[2020-12-13 07:41] LABS: Alanine Aminotransferase 46 U/L (4-35); Albumin Level 3.6 g/dL (3.5-5.1); Alkaline Phosphatase 160 U/L (38-126); Anion Gap 8 mmol/L (8-16); Aspartate Amino Transferase 54 U/L (14-36); Bilirubin,Total 0.4 mg/dL (0.2-1.3); Blood Urea Nitrogen 10 mg/dL (7-17); Calcium 9.2 mg/dL (8.4-10.2); Carbon Dioxide 26 mmol/L (22-30); Chloride 106 mmol/L (98-107); Estimated Glomerular Filt Rate > 60; Glucose 107 mg/dL (65-105); Lipase 23 U/L (23-300); Potassium 3.6 mmol/L (3.4-5.0); Sodium 140 mmol/L (137-145)
--- NOTE | 2020-12-13 08:25 | PC.NURSE ---
Pt updated awaiting CT scan availability. States pain has decreased at present.
[2020-12-13 10:10] LABS: Uric Acid 4.9 mg/dL (2.5-7.5)
--- NOTE | 2020-12-13 10:15 | PC.NURSE ---
Called Dr. Corado with pt status. Received from ER. CT report, lab results, and BP given. Orders received.
[2020-12-13] MEDS: MAGNESIUM SULF 6 GM/WATER150ML 6 GM/150 ML BAG IVPB (10:56)
[2020-12-13] MEDS: LACTATED RINGERS 1,000 ML 75 ML IV CONT (10:56)
[2020-12-13] MEDS: MAGNESIUM SULF 20GM/WATER500ML 500 ML 50 MG IV CONT ×2 (11:23→20:36)
--- NOTE | 2020-12-13 12:56 | PC.NURSE ---
Called Dr. Corado with ultrasound report and BPs. Orders received for pain meds.
[2020-12-13] MEDS: HYDROcodone/acetaminophen (*CRX) 5-325 MG TABLET 1 TAB PO ×2 (13:16→23:47)
[2020-12-13] MEDS: IBUPROFEN 600 MG TABLET PO ×2 (14:31→20:33)
--- NOTE | 2020-12-13 17:30 | PC.NURSE ---
Called Dr. Corado. Pt requesting additional pain meds for right upper quadrant pain and tenderness to touch. Orders received for additional pain meds.
[2020-12-13] MEDS: MORPHINE SULFATE (*CRX) 2 MG/ML INJ IV PUSH (18:07)
[2020-12-13] MEDS: CYCLOBENZAPRINE HCL 10 MG TABLET PO (22:53)
[2020-12-14] VITALS (15 sets, daily range): BP systolic 125–162; BP diastolic 62–88; PULSE 16–107; RESP 14–16; TEMP 36.8–36.9
[2020-12-14] MEDS: LACTATED RINGERS 1,000 ML 75 ML IV CONT (01:38)
[2020-12-14] MEDS: IBUPROFEN 600 MG TABLET PO ×3 (03:09→19:31)
[2020-12-14] MEDS: MAGNESIUM SULF 20GM/WATER500ML 500 ML 50 MG IV CONT (06:43)
[2020-12-14] MEDS: HYDROcodone/acetaminophen (*CRX) 5-325 MG TABLET 1 TAB PO ×3 (07:28→21:09)
--- NOTE | 2020-12-14 07:45 | PM.IMHP ---
H&P: HPI History of Present Illness Date/Time: 12/14/20 07:45 Chief Complaint: right upper quadrant pain Narrative: Jessica Conway is a 30 year old who was admitted for preeclampsia. Pt was induced for gestational hypertension. She underwent primary section on 12/09/20. Pt presented over the weekend for routine follow up BP check. Her Bp's were noted to still be mild range. She was d/c home on Procardia. Pt called the next morning complaining of acute onset RUQ pain. Pt states the pain was so bad she could not stand up straight. She reports the pain is exacerbated by taking a deep breathe. Pt states she has had on and off headaches but states that is normal for her even outside of . Pt reports one episode of blurred vision but attributes it to the morphine she received for pain control. Pt reports improvement in her LE edema. She denies any SOB or CP. Review of Systems Review of Systems: All systems reviewed & are unremarkable except as noted in HPI and below PMFSH Family History Family History Father Osteoarthritis Alcohol abuse Hypertension Mother Hypertension Diabetes mellitus History of heart attack Sibling Johny's disease Other Patient's mother is Social History Social History Smoking status: Never smoker Substance use: never Spiritual care concerns: No Meds Home Medications and Allergies Home Medications Medication Instructions Recorded Confirmed Type Daily 08/18/20 History acetaminophen [Tylenol] 1,000 mg PO PRN PRN 08/18/20 08/18/20 History cetirizine [Zyrtec] 10 mg PO DAILY 08/18/20 08/18/20 History famotidine [Pepcid AC] 20 mg PO HS 11/09/20 11/09/20 History hydrocodone-acetaminophen 1 tablet PO Q6H PRN #30 tablet 12/11/20 Rx nifedipine [Procardia XL] 30 mg PO DAILY #14 tablet 12/12/20 Rx Allergies Allergy/AdvReac Type Severity Reaction Status Date / Time No Known Allergies Allergy Verified 12/13/20 07:08 Vital Signs Vital Signs - 24 hr 12/13/20 08:01 12/13/20 08:16 12/13/20 08:30 Temperature Pulse Rate Respiratory Rate Blood Pressure 135/84 135/75 138/95 H Pulse Oximetry 100 100 100 12/13/20 10:03 12/13/20 10:16 12/13/20 10:46 Temperature Pulse Rate 83 91 82 Respiratory Rate Blood Pressure 153/82 H 149/92 H 133/76 Pulse Oximetry 12/13/20 11:01 12/13/20 11:16 12/13/20 12:01 Temperature Pulse Rate 96 101 H 92 Respiratory Rate Blood Pressure 140/81 145/80 H 143/85 H Pulse Oximetry 12/13/20 12:43 12/13/20 13:01 12/13/20 14:01 Temperature 36.2 C L Pulse Rate 87 96 Respiratory Rate Blood Pressure 140/74 143/72 H Pulse Oximetry 12/13/20 15:06 12/13/20 16:01 12/13/20 17:01 Temperature Pulse Rate 101 H 80 83 Respiratory Rate Blood Pressure 138/70 135/71 133/75 Pulse Oximetry 12/13/20 19:00 12/13/20 19:01 12/13/20 21:02 Temperature 37.2 C Pulse Rate 101 H 101 H Respiratory Rate 15 Blood Pressure 151/86 H 151/86 H Pulse Oximetry 12/13/20 21:05 12/13/20 23:00 12/13/20 23:01 Temperature Pulse Rate 85 84 Respiratory Rate 14 Blood Pressure 155/81 H 142/80 H Pulse Oximetry 12/14/20 01:01 12/14/20 03:00 12/14/20 03:02 Temperature Pulse Rate 81 81 Respiratory Rate 14 Blood Pressure 125/62 143/84 H Pulse Oximetry 12/14/20 07:22 Temperature Pulse Rate 100 Respiratory Rate Blood Pressure 153/88 H Pulse Oximetry Exam Const: General: cooperative, healthy appearing and comfortable Eyes: General: appearance normal, both eyes and all related structures Neck: Neck: normal visual inspection Resp: Effort & Inspection: normal respiratory effort and able to speak in complete sentences Auscultation: clear to auscultation bilaterally Cardio: Jugular venous dist
--- NOTE | 2020-12-14 07:52 | PM.IMHP ---
H&P: HPI History of Present Illness Date/Time: 12/14/20 07:52 Chief Complaint: ruq pain htn Narrative: Jessica Conway is a 30 year old female is admitted through the ER with hypertension. She was begun on magnesium sulfate. She had a low-transverse section for failed induction and worsening blood pressures. Review of Systems Review of Systems: All systems reviewed & are unremarkable except as noted in HPI and below PMFSH Family History Family History Father Osteoarthritis Alcohol abuse Hypertension Mother Hypertension Diabetes mellitus History of heart attack Sibling Johny's disease Other Patient's mother is Social History Social History Smoking status: Never smoker Substance use: never Spiritual care concerns: No Meds Home Medications and Allergies Home Medications Medication Instructions Recorded Confirmed Type Daily 08/18/20 History acetaminophen [Tylenol] 1,000 mg PO PRN PRN 08/18/20 08/18/20 History cetirizine [Zyrtec] 10 mg PO DAILY 08/18/20 08/18/20 History famotidine [Pepcid AC] 20 mg PO HS 11/09/20 11/09/20 History hydrocodone-acetaminophen 1 tablet PO Q6H PRN #30 tablet 12/11/20 Rx nifedipine [Procardia XL] 30 mg PO DAILY #14 tablet 12/12/20 Rx Allergies Allergy/AdvReac Type Severity Reaction Status Date / Time No Known Allergies Allergy Verified 12/13/20 07:08 Vital Signs Vital Signs - 24 hr 12/13/20 08:01 12/13/20 08:16 12/13/20 08:30 Temperature Pulse Rate Respiratory Rate Blood Pressure 135/84 135/75 138/95 H Pulse Oximetry 100 100 100 12/13/20 10:03 12/13/20 10:16 12/13/20 10:46 Temperature Pulse Rate 83 91 82 Respiratory Rate Blood Pressure 153/82 H 149/92 H 133/76 Pulse Oximetry 12/13/20 11:01 12/13/20 11:16 12/13/20 12:01 Temperature Pulse Rate 96 101 H 92 Respiratory Rate Blood Pressure 140/81 145/80 H 143/85 H Pulse Oximetry 12/13/20 12:43 12/13/20 13:01 12/13/20 14:01 Temperature 97.2 F L Pulse Rate 87 96 Respiratory Rate Blood Pressure 140/74 143/72 H Pulse Oximetry 12/13/20 15:06 12/13/20 16:01 12/13/20 17:01 Temperature Pulse Rate 101 H 80 83 Respiratory Rate Blood Pressure 138/70 135/71 133/75 Pulse Oximetry 12/13/20 19:00 12/13/20 19:01 12/13/20 21:02 Temperature 98.9 F Pulse Rate 101 H 101 H Respiratory Rate 15 Blood Pressure 151/86 H 151/86 H Pulse Oximetry 12/13/20 21:05 12/13/20 23:00 12/13/20 23:01 Temperature Pulse Rate 85 84 Respiratory Rate 14 Blood Pressure 155/81 H 142/80 H Pulse Oximetry 12/14/20 01:01 12/14/20 03:00 12/14/20 03:02 Temperature Pulse Rate 81 81 Respiratory Rate 14 Blood Pressure 125/62 143/84 H Pulse Oximetry 12/14/20 07:22 Temperature 98.4 F Pulse Rate 100 Respiratory Rate 16 Blood Pressure 153/88 H Pulse Oximetry Exam Const: General: no acute distress Eyes: General: appearance normal, both eyes and all related structures Neck: Neck: supple and no JVD Thyroid: thyroid normal Resp: Effort & Inspection: normal respiratory effort Auscultation: clear to auscultation bilaterally Cardio: Rate: regular rate Rhythm: regular rhythm GI: Inspection: non-distended GI Palp: Yes Soft to palpation, No Tenderness to palpation present (GI) and No Guarding due to palpation present (GI) Auscultation: normal bowel sounds : General: Yes bladder normal to palpation External Female Exam: normal external appearance Speculum Exam - Vagina: normal vaginal discharge and No vaginal bleeding Speculum Exam - Cervix: nontender Bimanual exam- vagina & uterus: bladder normal to palpation and No Cervical tenderness present OB/external & speculum: No vaginal bleeding Skin: General skin exam: no rashes or lesions noted Extrem: Ge
[2020-12-14 08:44] LABS: Hematocrit 32.3 % (37.0-47.0); Hemoglobin 10.4 g/dL (12.0-15.0); Mean Corpuscular HGB Conc 32.2 g/dl (32-36); Mean Corpuscular Hemoglobin 28.5 pg (26-34); Mean Corpuscular Volume 88.5 fl (80-100); Mean Platelet Volume 9.2 fl (7.4-10.4); Platelet Count Result 426 k/mm3 (150-375); Red Blood Count 3.65 M/mm3 (4.2-5.4); Red Cell Distribution Width 13.8 % (11.5-14.5); White Blood Count 6.3 K/mm3 (4.5-10.0)
[2020-12-14 08:46] LABS: Alanine Aminotransferase 41 U/L (4-35); Albumin Level 3.5 g/dL (3.5-5.1); Alkaline Phosphatase 164 U/L (38-126); Anion Gap 7 mmol/L (8-16); Aspartate Amino Transferase 36 U/L (14-36); Bilirubin,Total 0.3 mg/dL (0.2-1.3); Blood Urea Nitrogen 7 mg/dL (7-17); Calcium 6.9 mg/dL (8.4-10.2); Carbon Dioxide 26 mmol/L (22-30); Chloride 107 mmol/L (98-107); Estimated Glomerular Filt Rate > 60; Glucose 115 mg/dL (65-105); Sodium 140 mmol/L (137-145); Uric Acid 4.7 mg/dL (2.5-7.5)
[2020-12-14 08:48] LABS: Potassium 3.5 mmol/L (3.4-5.0)
--- NOTE | 2020-12-14 09:13 | PC.NURSE ---
0886- Spoke with Dr. Hu Guerrero, labs reviewed. Orders to discontinue Mag now, order GI consult.
--- NOTE | 2020-12-14 09:17 | PC.NURSE ---
0901- Spoke with WILLIAM at Dr. García office. Consult to be placed with him.
[2020-12-14 10:42] LABS: Hepatitis B Surface Antigen Negative (Negative)
[2020-12-14 10:48] LABS: HAV RESULT Negative (Negative); Hepatitis B Core IgM Result Negative (Negative)
[2020-12-14 10:59] LABS: Hepatitis C Virus Antibody Negative (Negative)
--- NOTE | 2020-12-14 14:46 | PC.NURSE ---
1400- Dr. García at bedside to see patient. He will place orders for MRCP to be completed. 1402- Spok with MRI, patient needs to be NPO for 6-8 hours before procedure. 1404- Spoke with Dr. García, informed him of patient needing to be NPO and procedure cannot be completed today. Per him, patient may be discharged and have MRCP outpatient or may stay and have the procedure done tomorrow morning. 1420- Discussing with patient what she would like to proceed with. Patient states concern with leaving and pain returning, but asking for a pass to leave hospital for a few hours to complete discharge instructions for in the NICU, then will return to hospital to have procedure tomorrow. Discussed this option with Director of unit, and we cannot allow patient on a pass with uncontrolled pain at this time. 1433- Spoke with Dr. Hu Guerrero and updated him on patient plan of care after consult. Dr. Hu Guerrero would like patient to stay overnight to ensure pain well controlled and have MRCP procedure in the morning. 1435- Patient tearful, but agreeable at this time to plan of care.
--- NOTE | 2020-12-14 16:10 | WPDGICN ---
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 (2) Gallbladder colic: Code(s): K80.20 - Calculus of gallbladder without cholecystitis without obstruction Status: Acute Assessment and Plan: most likely related to gb colic, if recurrent and mrcp negative, then consider hida scan and refer to surgery (3) Elevated liver enzymes: Code(s): R74.8 - Abnormal levels of other serum enzymes Status: Acute Assessment and Plan: hepatitis panel negative (4) Preeclampsia in period: Code(s): O14.95 - Unspecified pre-eclampsia, complicating the puerperium Status: Acute Assessment and Plan: by primary, on meds GI Consult Note Consult date/time: 12/14/20 16:10 Reason for consult: ruq pain, elevated liver enzymes HPI: Jessica Conway is a 30 year old female who was admitted for preeclampsia, she had section on 12/09/20 and then in routine follow up had mild elevated BP, sent home with procardia but next day had severe pain in RUQ pain, worse after inspiration that lasted more than 1 hour, blood work revealed elevated transaminases and admitted to hospital. Today she is feeling better, still pain but improved and able to tolerate diet. She says that during had some ruq discomfort. ast 54, alt 46 and today down to [address] scan a/p reviewed, had GB distension but then ultrasound was unremarkable with normal bile duct size. Review of Systems Constitutional: Constitutional: Denies chills Eyes: Eyes: Reports no additional eye complaints ENT: Reports system reviewed and no additional complaints, except as documented Cardiovascular: Cardiovascular: Denies chest pain Respiratory: Respiratory: Denies dyspnea Gastrointestinal: Gastrointestinal: Reports abdominal pain and Denies vomiting Genitourinary: Genitourinary: Denies hematuria Musculoskeletal: Musculoskeletal: Denies neck pain Integumentary/Breasts: Skin/Breast: Denies dry skin Neurologic: Reports system reviewed and no additional complaints, except as documented and Denies confusion Psychiatric: Psychiatric: Denies anxiety Endocrine: Endocrine: Denies cold intolerance [facility] Past Medical History Medical History (Updated 12/14/20 @ 16:17 by Rudy Torres MD) Elevated liver enzymes Gallbladder colic RUQ pain Family History Family History Father Osteoarthritis Alcohol abuse Hypertension Mother Hypertension Diabetes mellitus History of heart attack Sibling Johny's disease Other Patient's mother is Social History Social History Smoking status: Never smoker Substance use: never Spiritual care concerns: No Meds Home Medications and Allergies Home Medications Medication Instructions Recorded Confirmed Type Daily 08/18/20 History acetaminophen [Tylenol] 1,000 mg PO PRN PRN 08/18/20 08/18/20 History cetirizine [Zyrtec] 10 mg PO DAILY 08/18/20 08/18/20 History famotidine [Pepcid AC] 20 mg PO HS 11/09/20 11/09/20 History hydrocodone-acetaminophen 1 tablet PO Q6H PRN #30 tablet 12/11/20 Rx nifedipine [Procardia XL] 30 mg PO DAILY #14 tablet 12/12/20 Rx Allergies Allergy/AdvReac Type Severity Reaction Status Date / Time No Known Allergies Allergy Verified 12/13/20 07:08 Vital Signs Vital Signs - 24 hr 12/13/20 17:01 12/13/20 19:00 12/13/20 19:01 Temperature 98.9 F Pulse Rate 83 101 H Respiratory Ra
--- NOTE | 2020-12-14 17:44 | P.PNOB_ITS ---
OB - PN: Subj Subjective Date/time seen: 12/14/20 17:44 appreciate GI input. await mrcp tomorrow OB - PN: Obj Data Labs CBC & Chem 7: 12/14/20 08:08 12/14/20 08:08 Labs: Laboratory Results - last 24 hr 12/14/20 12/14/20 12/14/20 08:08 08:08 09:27 WBC 6.3 RBC 3.65 L Hgb 10.4 L Hct 32.3 L MCV 88.5 MCH 28.5 MCHC 32.2 RDW 13.8 Plt Count 426 H MPV 9.2 Sodium 140 Potassium 3.5 Chloride 107 Carbon Dioxide 26 Anion Gap 7 L BUN 7 Creatinine 0.60 L Estim Creat Clear Calc Not Reportable Estimated GFR > 60 Glucose 115 H Uric Acid 4.7 Calcium 6.9 L Total Bilirubin 0.3 AST 36 ALT 41 H Alkaline Phosphatase 164 H Total Protein 7.0 Albumin 3.5 Hepatitis A IgM Ab Negative Hep Bs Antigen Negative Hep B Core IgM Ab Negative Hepatitis C Ab Screen Negative OB - PN A/P Time Spent With Patient Time: Total time spent is greater than 50% in coordination of care (as docum ented) at patient's floor/unit and/or counseling patient:
[2020-12-15 02:17] VITALS: BP 139/85; PULSE 80
[2020-12-15] MEDS: IBUPROFEN 600 MG TABLET PO ×2 (02:17→08:15)
[2020-12-15] MEDS: HYDROcodone/acetaminophen (*CRX) 5-325 MG TABLET 1 TAB PO ×2 (05:58→12:23)
--- NOTE | 2020-12-15 06:19 | P.PNOB_ITS ---
OB - PN: Subj Subjective Date/time seen: 12/15/20 06:19 patient off to mri did ok through night OB - PN: Obj Data Labs CBC & Chem 7: 12/14/20 08:08 12/14/20 08:08 Labs: Laboratory Results - last 24 hr 12/14/20 12/14/20 12/14/20 08:08 08:08 09:27 WBC 6.3 RBC 3.65 L Hgb 10.4 L Hct 32.3 L MCV 88.5 MCH 28.5 MCHC 32.2 RDW 13.8 Plt Count 426 H MPV 9.2 Sodium 140 Potassium 3.5 Chloride 107 Carbon Dioxide 26 Anion Gap 7 L BUN 7 Creatinine 0.60 L Estim Creat Clear Calc Not Reportable Estimated GFR > 60 Glucose 115 H Uric Acid 4.7 Calcium 6.9 L Total Bilirubin 0.3 AST 36 ALT 41 H Alkaline Phosphatase 164 H Total Protein 7.0 Albumin 3.5 Hepatitis A IgM Ab Negative Hep Bs Antigen Negative Hep B Core IgM Ab Negative Hepatitis C Ab Screen Negative OB - PN A/P Time Spent With Patient Time: Total time spent is greater than 50% in coordination of care (as laci golden) at patient's floor/unit and/or counseling patient:
[2020-12-15 07:20] VITALS: RESP 18; TEMP 36.7
[2020-12-15 07:23] VITALS: BP 147/81; PULSE 75
--- NOTE | 2020-12-15 10:33 | PC.NURSE ---
1015-Mother called out for assistance with bottle feeding, while feeding , noted that the baby had circumoral cyanosis. pulse oximeter applied, sats 95 or greater. resting comfortably in mothers arms, no respiratory distress noted. Encouraged patient to call her primary care physician or take to ER. Parents verbalized understanding.
[2020-12-15 11:13] VITALS: BP 147/78; PULSE 67; RESP 16; TEMP 36.6
[2020-12-15] MEDS: NIFEdipine 30 MG TAB.ER.24 PO (12:17)
--- NOTE | 2020-12-15 12:32 | PC.NURSE ---
MRCP results reviewed with Dr. Torres. Patient cleared from Dr. Torres stand point and no further orders received at this time.
--- NOTE | 2020-12-15 12:35 | PC.NURSE ---
Dr. Liao notified regarding patient being cleared from Dr. Torres standpoint. Received orders from Dr. Liao to discharge patient to home and have patient continue taking her 30 mg Procardia XL daily.
--- NOTE | 2020-12-15 12:37 | P.DS_ITS ---
DS: Admitting Diagnosis Admitting Diagnosis Admitting Diagnosis: ruq pain htn DS: Summary Hospital Course Hospital Course: the patient was admitted through the emergency department with right upper quadrant pain following a section few days prior to admission. Her blood pressure was elevated and she had been started on Procardia. She had mildly elevated AST and ALT and was watched over the next 48 hours. Her pain improved. A consult was made with GI who undertook a and M are CP which was negative. She is discharged home on Procardia XL 30 mg and follow up in a week Time Spent with Patient Time attestation: Total time spent providing and/or coordinating discharge services: Exam Const: General: no acute distress Eyes: General: appearance normal, both eyes and all related structures Neck: Neck: supple and no JVD Thyroid: thyroid normal Resp: Effort & Inspection: normal respiratory effort Auscultation: clear to auscultation bilaterally Cardio: Rate: regular rate Rhythm: regular rhythm GI: Inspection: non-distended GI Palp: Yes Soft to palpation, No Tenderness to palpation present (GI) and No Guarding due to palpation present (GI) Au scultation: normal bowel sounds : General: Yes bladder normal to palpation External Female Exam: normal external appearance Speculum Exam - Vagina: normal vaginal discharge and No vaginal bleeding Speculum Exam - Cervix: nontender Bimanual exam- vagina & uterus: bladder normal to palpation and No Cervical tenderness present OB/external & speculum: No vaginal bleeding Skin: General skin exam: no rashes or lesions noted Extrem: General: normal to inspection and no edema Psych: Mental Status: mental status grossly normal Affect: normal affect Discharge Plan Discharge Attending physician on discharge: Victoriano Liao Discharging Clinician: Victoriano Liao Patient Disposition: Home, Self-Care Activity: may shower, no straining and pelvic rest Diet: heart healthy Wound Care Instructions: follow printed instructions Patient Instructions: Antibiotic Form Stand Alone Forms: General Discharge Information Follow-up/Referrals: Victoriano Liao MD [Physician] - Discharge Medications: Continued acetaminophen [Tylenol] 325 mg Tablet 1,000 mg PO PRN PRN (Reason: Pain) RF: 0 cetirizine [Zyrtec] 10 mg Tablet 10 mg PO DAILY RF: 0 Daily RF: 0 famotidine [Pepcid AC] 20 mg Tablet 20 mg PO HS RF: 0 hydrocodone-acetaminophen 5-300 mg tablet 1 tablet PO Q6H PRN (Reason: pain) Qty: 30 RF: 0 nifedipine [Procardia XL] 30 mg Tablet Extended Release 24hr 30 mg PO DAILY Qty: 14 RF: 0 Date of admission: 12/14/20 15:48 Primary Care Provider: PHYSICIAN,SENIOR TECHNICAL RECRUITER Admitting Provider: Eric Corado Attending physician on admission: Eric Corado Condition: Stable
== END 2020-12-15 13:40 | disposition home or self-care (01) | DRG 776 ==
LOC: ANHED 08:22 → ANHOBPP 09:44
PROVIDERS: Emergency Medicine; Admitting Provider Student in an Organized Health Care Education/Training Program; Emergency Provider Emergency Medicine; Visit Provider Obstetrics & Gynecology
DX: O14.95 Unspecified pre-eclampsia, complicating the puerperium (principal); R74.8 Abnormal levels of other serum enzymes; K80.20 Calculus of gallbladder without cholecystitis without obstruction; O99.63 Diseases of the digestive system complicating the puerperium
CPT/HCPCS: 36415; 74177; 74183; 76376; 76705; 80053; 80074; 81001; 81025; 83690; 84550; 85025; 85027; 87077; 87086; 87088; 87186; A9270; A9577; J2270; J3475; J7120; Q9967

== ENCOUNTER 2021-01-22 11:34 | Outpatient (CLI) | payer OTHER, SELFPAY ==
--- NOTE | 2021-01-22 14:54 | PC.NURSE ---
IN 1000 OUT 1040 HISTORY: Pt. delivered at [facility] at 39 weeks. had complications after delivery of meconium and was transferred to [facility]. was discharged in 1 week. Mother had complications of and was induced due to high blood pressures. Infant is now 45 days old. has been seen by ICP as scheduled. last seen by ICP at 1 month. Mother reports: She began pumping while in the hospital due to transfer. Mother has continues to pump and bottle feed. Mother is pumping every three hours for 15 minutes, she pumps 3 oz from Right and 12- oz from Left. Mother will frequently sleep for 6 hours, allowing FOB to bottle feed. Mother has had deep pain to right at times and concerned she is not going to keep up with demands. Infant is now taking 4 oz per feeding. Mother wishes: To resolve discomfort and increase milk supply. Currently at 6-8 wets per day and 4+ yellow seedy stools per day. weight: 8#14 Last Weight: 10#2 DISCUSSION: Mother is using the Motiff pump and using the correct flange size. Reviewed her pumps setting and advised to pump with comfort and not increase draw to pain. No hardened areas to breasts noted. Suggested mother pump 20 minutes each session to increase milk supply, and to pump once during the night. Discussed stimulation and milk supply, suggested warm compresses and self expression for 1-2 minutes before pumping session. Advised mother could add a session in during the day also to assist with increasing supply if she chooses. Stressed infant will benefit from any breastmilk mother provides and if she does not have enough EBM to use formula to satisfy infant. Mother reports she understands ways to assist with increased supply. Offered to assist mother with putting infant to breast if she chooses, mother states she is comfortable with current feeding plan. PLAN: Mother will follow above feeding plan to increase supply using formula as needed. . Mother will call with further questions or concerns. Follow up visit/phone call scheduled for ///////
== END 2021-01-22 11:35 | disposition home or self-care (01) ==
LOC: ANHOBOP 11:36
PROVIDERS: Visit Provider Obstetrics & Gynecology
DX: Z39.1 Encounter for care and examination of lactating mother (principal)
CPT/HCPCS: 99212; G0463

== ENCOUNTER 2021-08-03 18:54 | Emergency (ER) | payer OTHER, SELFPAY ==
[2021-08-03 19:06] VITALS: BP 144/78; PULSE 94; RESP 20; TEMP 37.2; O2SAT 100
--- NOTE | 2021-08-03 19:07 | ED.WOUNDLAC ---
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 Reports the wound bled a lot. Denies decreased strength, sensation, range of motion of the digit. Putting pressure on the wound. Patient is up-to-date on her tetanus vaccination Related Data Home Medications Medication Instructions Recorded Confirmed No Home Medications 08/03/21 08/03/21 Allergies Allergy/AdvReac Type Severity Reaction Status Date / Time No Known Allergies Allergy Verified 08/03/21 19:12 Review of Systems Review of Systems: CONSTITUTIONAL: Denies malaise, chills, sweats, or fever. SKIN: Laceration to the second digit of the right hand MUSCULOSKELETAL: Denies muscle skeletal injury, decreased range of motion, strength NEUROLOGIC: Denies numbness, weakness All systems reviewed & are unremarkable except as noted in HPI and below PMFSH Past Medical History Medical History Elevated liver enzymes Gallbladder colic RUQ pain Family History Family History Father Osteoarthritis Alcohol abuse Hypertension Mother Hypertension Diabetes mellitus History of heart attack Sibling Johny's disease Other Patient's mother is Social History Social History Smoking status: Never smoker Substance use: never Spiritual care concerns: No Comments At time of signature, agree with nursing past medical, surgical, social and family history. There is no relevant family history pertinent to the presenting complaint Exam Narrative: GENERAL: Well-appearing, well-nourished, and in no acute distress. HEAD: Normocephalic EYES: PERRLA, conjunctivae clear NECK: Supple. CHEST: Speaks in full sentences. No respiratory distress. HEART: Regular rate and rhythm. Normal and equal peripheral pulses. EXTREMITIES: Second digit of right hand has normal strength and sensation. 5/5 strength with digit flexion, extension. Range of motion normal. No cyanosis or edema noted. No tenderness. Normal digital cascade with flexion of fingers, median, ulnar and radial nerve intact. Normal sensation of each side of finger. Can perform 'okay' sign, 'cross over finger test of index and middle fingers' and 'thumbs up' sign. No scissoring. Normal thumb opposition. Good capillary refill and radial pulse. Distal capillary refill less than 3 seconds. SKIN: Warn, dry, intact, pink. 1 cm skin flap type superficial laceration noted to the palmar aspect of the second digit of the right hand near the MIP joint NEURO: Alert and oriented x3. PSYCH: Normal mood and affect Course Course Emergency Course: Patient is aware of diagnosis, understands and agrees to treatment plan. Anticipatory guidance given. Patient agrees to follow-up as directed and is aware of reasons to seek care at the emergency department. Portions of this record may have been created with voice recognition software Vital Signs Vital signs: Reviewed. Procedures Laceration Laceration 1: Date: 08/03/21 Time: 19:17 Site: hand Side (If applicable): right Size (cm): 1 Description: flap Depth: simple, single layer Pre-repair: wound explored and irrigated ====== Skin Level ====== Skin layer closed with: dermabond ====== Subcutaneous Layer ====== ====== Muscle Layer ====== ====== Tendon Layer ====== MDM - Wound/Laceration MDM Narrative Medical decision making narrative: Wound explore
== END 2021-08-03 19:34 | disposition home or self-care (01) ==
PROVIDERS: Emergency Provider Nurse Practitioner
DX: S61.210A Laceration without foreign body of right index finger without damage to nail, initial encounter (principal); W45.8XXA Other foreign body or object entering through skin, initial encounter
CPT/HCPCS: 12001; 99212; G0463

== ENCOUNTER 2023-05-22 08:46 | Outpatient (CLI) | payer OTHER, SELFPAY ==
[2023-05-22 18:39] LABS: Alanine Aminotransferase 18 U/L (6-35); Albumin Level 4.2 g/dL (3.5-5.1); Alkaline Phosphatase 59 U/L (38-126); Anion Gap 10 mmol/L (8-16); Aspartate Amino Transferase 39 U/L (14-36); Bilirubin,Total 0.4 mg/dL (0.2-1.3); Blood Urea Nitrogen 11 mg/dL (7-17); Calcium 8.9 mg/dL (8.4-10.2); Carbon Dioxide 21 mmol/L (22-30); Chloride 108 mmol/L (98-107); Cholesterol 175 mg/dL (0-200); Estimated Glomerular Filt Rate > 60; Glucose 99 mg/dL (65-110); HDL Direct 36 mg/dL; Potassium 4.4 mmol/L (3.4-5.0); Sodium 139 mmol/L (137-145); Triglycerides 84 mg/dL (<150)
[2023-05-22 18:48] LABS: Hematocrit 39.3 % (37.0-47.0); Hemoglobin 12.1 g/dL (12.0-15.0); Mean Corpuscular HGB Conc 30.8 g/dl (32-36); Mean Corpuscular Volume 94.2 fl (80-100); Mean Platelet Volume 10.7 fl (7.4-10.4); Platelet Count Result 320 k/mm3 (150-375); Red Blood Count 4.17 M/mm3 (4.2-5.4)
[2023-05-22 18:50] LABS: LDL Cholesterol Direct 102 mg/dL
== END 2023-05-22 08:47 | disposition home or self-care (01) ==
LOC: ANHBWCLAB 08:48
PROVIDERS: PCP Family Medicine; Visit Provider Nurse Practitioner Adult Health
DX: D64.9 Anemia, unspecified (principal); Z13.9 Encounter for screening, unspecified
CPT/HCPCS: 36415; 80053; 80061; 85027

== ENCOUNTER 2024-05-27 10:58 | Outpatient (CLI) | payer OTHER, SELFPAY ==
[2024-05-27 20:25] LABS: Add Urine Microscopic? NO; Appearance Urine Clear (Clear); Bilirubin Urine Negative (Negative); Blood Urine Negative (Negative); Color Urine Yellow (Yellow); Glucose Urine UA Negative (Negative); Ketones Urine Trace mg/dL (Negative); Leukocyte Esterase Ur Negative LEU/UL (Negative); Nitrate Urine Negative (Negative); Protein Urine Negative (Negative); Specific Grav Ur 1.021 (1.001-1.035); Urobilinogen Urine 0.2 mg/dL (<2.0)
== END 2024-05-27 10:59 | disposition home or self-care (01) ==
LOC: ANHBWCLAB 11:00
PROVIDERS: PCP Nurse Practitioner Adult Health; Visit Provider Nurse Practitioner Adult Health
DX: R39.9 Unspecified symptoms and signs involving the genitourinary system (principal)
CPT/HCPCS: 81003; 87086; 87088

== ENCOUNTER 2024-10-14 16:09 | Outpatient (CLI) | payer OTHER, SELFPAY ==
[2024-10-14 20:40] LABS: Add Urine Microscopic? NO; Appearance Urine Clear (Clear); Bilirubin Urine Negative (Negative); Blood Urine Negative (Negative); Color Urine Yellow (Yellow); Glucose Urine UA Negative (Negative); Ketones Urine Negative (Negative); Leukocyte Esterase Ur Negative LEU/UL (Negative); Nitrate Urine Negative (Negative); Protein Urine Negative (Negative); Specific Grav Ur 1.024 (1.001-1.035); Urobilinogen Urine 0.2 mg/dL (<2.0)
== END 2024-10-14 16:10 | disposition home or self-care (01) ==
LOC: ANHBWCLAB 16:10
PROVIDERS: PCP Nurse Practitioner Adult Health; Visit Provider Nurse Practitioner Adult Health
DX: R39.9 Unspecified symptoms and signs involving the genitourinary system (principal)
CPT/HCPCS: 81003

== ENCOUNTER 2024-11-27 10:41 | Outpatient (CLI) | payer OTHER, SELFPAY ==
--- OUTSIDE RECORDS SUMMARY | 2024-11-27 11:36 | XMS_ITS | Encounter Summary ---
Author Organization [facility] Address [address] [place] [id number] Care Team Providers Care Starch Cooker Name Role Phone Unavailable Primary Care Provider Unavailabl e Encounter Details Date Type Department Care Team (Late st Contact Info) Description 02/27/2020 Lab Requisition [facility]BIOLOGY [address] [place] [address] Ghassan Hall MD Cough Social History Tobacco Use Types Packs/Day Years Used Date Smoking Tobacco: Never Assessed Sex and Gender Information Value Date Recorded Sex Assigned at Not on file Gender Identity Not on file Sexual Orientation Not on file documented as of this encounter Plan of Treatment Not on file documented as of this encounter Procedures Procedure Name Priority Date/Time Associated Diagnosis Comments SARS-COV-2 (COVID-19) IN HOUSE Routine 02/27/2020 9:40 AM CDT Cough documented in this encounter Results * SARS-COV-2 (COVID-19) IN HOUSE (02/27/2020 9:40 AM CDT) COVID-19 PCR Not detected Not detected, Invalid 02/28/2020 1:[address] [facility]CRO[facility] Microbiology SPECIMEN FROM NASOPHARYNGEAL STRUCTURE / Unknown Collection / Unknown 02/27/2020 9:40 AM CDT 02/27/2020 9:[address] [facility]CRO[facility] - 02/28/2020 1:58 PM CDT This Real Time RT-PCR assay was developed and its performance characteristics determined by [facility]. This test has been authorized by the Food and Drug administration (FDA)under an Emergency Use Authorization (EUA). This test has been validated in accordance with the FDA's guidance document Policy for Diagnostic Testing in Laboratories Certified to perform High Complexity Testing under CLIA prior to Emergency Use Authorization for Coronavirus Disease-2019 during the Public Health Emergency issued on December 14, 2019. FDA independent review of this validation is pending. This test is only authorized for the duration of time the declaration that circumstances exist justifying the authorization of emergency use of in vitro diagnostic tests for detection of SARS-CoV-2 virus and/or diagnosis of COVID-19 infection under section 564(b)(1) of the Act, 21 U.S.C 360bbb-3 (b)(1), unless the authorization is terminated or revoked sooner. Ghassan Hall MD LAB - MICROBIOLOGY ORDERABLES [facility]CRO[facility] [address] [place] [address], [facility] [[email or web address]] [phone] documented in this encounter Visit Diagnoses Diagnosis Cough documented in this encounter
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
--- OUTSIDE RECORDS SUMMARY | 2024-11-27 11:36 | XMS_ITS | Referral Summary ---
Author Organization [facility] Address [address] [place] [address] Care Team Providers Care Reconnaissance Man Name Role Phone Unavailable Primary Care Provider Unavailabl e Source Comments [facility],non-owned Affiliates and Associated Physician Practices is amultiple site organization consisting of ambulatory clinics and hospital sitesin [place], [place], [place] and [place]. This disclosure is being madepursuant to the Care Everywhere program and may not contain all information available regarding this patient. Last updated 18.[facility] Social History Tobacco Use Types Packs/Day Years Used Date Smoking Tobacco: Never Assessed Sex and Gender Information Value Date Recorded Sex Assigned at Not on file Gender Identity Not on file Sexual Orientation Not on file Plan of Treatment Not on file
--- OUTSIDE RECORDS SUMMARY | 2024-11-27 11:36 | XMS_ITS | Patient Health Summary ---
Author Organization [facility] Address [address] [place] [address] Care Team Providers Care Wool Hat Finisher Name Role Phone Unavailable Primary Care Provider Unavailabl e Note from [facility] [place],non-owned Affiliates and Associated Physician Practices is amultiple site organization consisting of ambulatory clinics and hospital sitesin [place], [place], [place] and [place]. This disclosure is being madepursuant to the Care Everywhere program and may not contain all information available regarding this patient. Last updated 18.[facility] Social History Tobacco Use Types Packs/Day Years Used Date Smoking Tobacco: Never Assessed Sex and Gender Information Value Date Recorded Sex Assigned at Not on file Gender Identity Not on file Sexual Orientation Not on file Procedures * SARS-COV-2 (COVID-19) IN HOUSE(Performed 02/27/2020) Performed for Cough * SARS-COV-2 (COVID-19) IN HOUSE(Performed 02/17/2020) Results * SARS-COV-2 (COVID-19) IN HOUSE (02/27/2020 9:40 AM CDT) Only the most recent of2 resultswithin the time period is included. COVID-19 PCR Not detected Not detected, Invalid 02/28/2020 1:58 PM CDT [facility] Microbiology SPECIMEN FROM NASOPHARYNGEAL STRUCTURE / Unknown Collection / Unknown 02/27/2020 9:40 AM CDT 02/27/2020 9:12 PM CDT Narrative [facility] - 02/28/2020 1:58 PM CDT This Real Time RT-PCR assay was developed and its performance characteristics determined by [facility]. This test has been authorized [...] Ghassan Hall MD LAB - MICROBIOLOGY ORDERABLES [facility] [address] [place] [address], [facility] [phone]
--- OUTSIDE RECORDS SUMMARY | 2024-11-27 11:36 | XMS_ITS | Encounter Summary ---
Author Organization [facility] Address [address] [place] [address] Care Team Providers Care Molder Shoulder Pad Name Role Phone Unavailable Primary Care Provider Unavailabl e Encounter Details Date Type Department Care Team (Late st Contact Info) Description 02/17/2020 Lab Requisition [facility] [address] [place] [address] Ghassan Hall MD Social History Tobacco Use Types Packs/Day Years [...] Diagnosis Comments SARS-COV-2 (COVID-19) IN HOUSE Routine 02/17/2020 5:50 AM CDT documented in this encounter Results * SARS-COV-2 (COVID-19) IN HOUSE (02/17/2020 5:50 AM CDT) COVID-19 PCR Not detected Not detected, Invalid 02/17/2020 10:11 PM CDT [facility] Microbiology SPECIMEN FROM NASOPHARYNGEAL STRUCTURE / Unknown Collection / Unknown 02/17/2020 5:50 AM CDT 02/17/2020 10:49 AM CDT Narrative [facility] - 02/17/2020 10:11 PM CDT This Real Time RT-PCR assay was developed and its performance characteristics determined by [facility]. This test has been authorized [...] Ghassan Hall MD LAB - MICROBIOLOGY ORDERABLES [facility] [address] [place], [place] [address], [facility] [phone] documented in this encounter Visit Diagnoses Not on filedocumented in this encounter
--- OUTSIDE RECORDS SUMMARY | 2024-11-27 11:36 | XMS_ITS | Clinical Summary ---
Author Organization [facility] Address [address] [place] [address] Care Team Providers Care Wound Care Nurse Name Role Phone Unavailable Primary Care Provider Unavailabl e Source Comments [facility],non-owned Affiliates and Associated Physician Practices is amultiple site organization consisting of ambulatory clinics and hospital sitesin [place], [place], [place] and [place]. This disclosure is being madepursuant to the Care Everywhere program and may not contain all information available regarding this patient. Last updated 18.[facility] [employer] Social History Tobacco Use Types Packs/Day Years Used Date Smoking Tobacco: Never Assessed Sex and Gender Information Value Date Recorded Sex Assigned at Not on file Gender Identity Not on file Sexual Orientation Not on file Plan of Treatment Health Maintenance Due Date Last Done Comments PAP SMEAR 1990 HIV SCREENING 2005 HEPATITIS C SCREENING 05/08/2008 DTAP/TDAP/TD VACCINES (1 - Tdap) 2009 HEPATITIS B VACCINE (1 of 3 - 19+ 3-dose series) 2009 COVID-19 VACCINE (1 - 2023-2 5 season) 2024 INFLUENZA VACCINE (#1) 2024 DEPRESSION SCREENING 10/16/2024 ZOSTER VACCINE (1 of 2) 2040 HIB VACCINE Aged Out No longer eligi ble based on patient's age to complete this topic HPV VACCINE Aged Out No longer eligi ble based on patient's age to complete this topic MENINGOCOCCAL (Group B) VACCINE Aged Out No longer eligible based on patient's age to complete this topic MENINGOCOCCAL VACCINE Aged Out No ronald viet eligible based on patient's age to complete this topic PNEUMOCOCCAL VACCINE Aged Out No long er eligible based on patient's age to complete this topic
[2024-11-27 18:15] LABS: Hematocrit 38.4 % (37.0-47.0); Mean Corpuscular HGB Conc 31.3 g/dl (32-36); Mean Corpuscular Hemoglobin 29.4 pg (26-34); Mean Corpuscular Volume 94.1 fl (80-100); Mean Platelet Volume 10.2 fl (7.4-10.4); Platelet Count Result 302 k/mm3 (150-375); Red Blood Count 4.08 M/mm3 (4.2-5.4); White Blood Count 4.6 K/mm3 (4.5-10.0)
[2024-11-27 18:21] LABS: Alanine Aminotransferase 19 U/L (6-35); Albumin Level 4.2 g/dL (3.5-5.1); Alkaline Phosphatase 58 U/L (38-126); Anion Gap 7 mmol/L (4-12); Aspartate Amino Transferase 32 U/L (14-36); Bilirubin,Total 0.5 mg/dL (0.2-1.3); Blood Urea Nitrogen 20 mg/dL (7-17); Calcium 9.1 mg/dL (8.4-10.2); Carbon Dioxide 28 mmol/L (22-30); Chloride 105 mmol/L (98-107); Cholesterol 203 mg/dL (0-200); Estimated Glomerular Filt Rate > 60; Glucose 95 mg/dL (65-110); HDL Direct 48 mg/dL; Potassium 4.7 mmol/L (3.4-5.0); Sodium 140 mmol/L (137-145); Triglycerides 66 mg/dL (<150)
[2024-11-27 18:31] LABS: LDL Cholesterol Direct 118 mg/dL
[2024-11-27 18:41] LABS: Add Urine Microscopic? YES; Appearance Urine Clear (Clear); Bacteria Urine Rare /hpf; Bilirubin Urine Negative (Negative); Blood Urine Negative (Negative); Color Urine Yellow (Yellow); Glucose Urine UA Negative (Negative); Ketones Urine Negative (Negative); Leukocyte Esterase Ur 1+ LEU/UL (Negative); Need Manual Microscopic Reviewed; Nitrate Urine Negative (Negative); Non Pathogenic Casts 0-2; Protein Urine Negative (Negative); Specific Grav Ur 1.023 (1.001-1.035); Squamous Epithelial Cell Urine Few /hpf (Few); Urobilinogen Urine 0.2 mg/dL (<2.0); pH Urine 5.5 (5.0-9.0)
== END 2024-11-27 10:42 | disposition home or self-care (01) ==
LOC: ANHBWCLAB 10:43
PROVIDERS: PCP Nurse Practitioner Adult Health; Visit Provider Nurse Practitioner Adult Health
DX: Z13.9 Encounter for screening, unspecified (principal); R39.9 Unspecified symptoms and signs involving the genitourinary system
CPT/HCPCS: 36415; 80053; 80061; 81001; 84443; 85027; 87086

== ENCOUNTER 2025-05-29 11:29 | Outpatient (CLI) | payer OTHER, SELFPAY ==
--- OUTSIDE RECORDS SUMMARY | 2025-05-29 11:44 | XMS_ITS | Encounter Summary ---
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 This test has been authorized [...] sooner. Ghassan Hall MD LAB - MICROBIOLOGY ORDERABL ES Final Result [facility] [address] [place] [address], [facility] [phone] documented in this encounter Visit Diagnoses Diagnosis Cough documented in this encounter
--- OUTSIDE RECORDS SUMMARY | 2025-05-29 11:44 | XMS_ITS | Clinical Summary ---
Author Organization [facility] Address [address] [place] [address] Phone Care Team Providers Care Brass Wind Instrument Maker Name Role Phone Victoriano Olson MD [facility] [phone] Allergies No known active allergies Medications Vit-Fe [...] 7:47 AM CDT Height 162.6 cm (5' 4) 02/18/2021 7:47 AM CDT Body Mass Index 36.05 02/18/2021 7:47 AM CDT Plan of Treatment Health Maintenance Due Date Last Done Comments Hepatitis C Virus (HCV) Screening 1990 Hepatitis B Immunization (1 of 3 - 19+ 3-dose series) 2009 Human Papillomavirus (HPV) Immunization (1 - 3-dose SCDM series) 2017 HPV/Cotest 2020 Cervical Cancer Screening (CCS) 02/13/2021 Pap Smear 02/13/2021 02/13/2018, 12/21/2017 Colonoscopy 02/16/2023 02/17/2020 Colorectal Cancer Screening 02/16/2023 SARS-COV-2 Immunization ( season) 2024 05/18/2021, 04/27/2021 Influenza Immunization (#1) 06/16/202507/17, 08/05/2020, 08/16/2019, Additional history exists Td Immunization Every 10 Years (Adults With [...] this topic Medical Devices Implanted Type Area Insurance Sales Manager Device Identifier Shelf Expiration Date Model / Serial / Lot Clip 360 Resolution 235cm - [id number] Implanted:Qty: 2 on 02/17/2020 by Brady Cope DO at [facility] IMPLANT N/A: Colon Pivto 08/13/2022 [id number] / [id number] / [id number] Clip 360 Resolution 235cm - [id number] Implanted:Qty: 1 on 02/17/2020 by Brady Cope DO at [facility] IMPLANT N/A: Colon Pivto 08/24/2022 [id number] / [id number] / [id number] Procedures Procedure Name Priority Date/Time Associated Diagnosis Comments PATHOLOGY CYTOLOGY UNDERGROUND DISTRIBUTION ENGINEER Routine 12/21/2017 from Last 3 Months or Most Recently Relevant to Health Maintenance Results * PATHOLOGY CYTOLOGY UNDERGROUND DISTRIBUTION ENGINEER (12/21/2017) Specimen of unknown material (specimen) us Victoriano Guerrero MD PATHOLOGY/CYTOLOGY ORDERAB LES Final Result from Last 3 Months or Most Recently Relevant to Health Maintenance Insurance [employer] Care Teams Brass Wind Instrument Maker Relationship Specialty Start Date End Date Victoriano Olson MD [address] [facility] [address] [place] [address] Obstetrics & Gynecology 10/28/19
--- OUTSIDE RECORDS SUMMARY | 2025-05-29 11:44 | XMS_ITS | Encounter Summary ---
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 This test has been [...] the authorization is terminated or revoked sooner. us Ghassan Hall MD LAB - MICROBIOLOGY ORDERABL ES Final Result [facility] [address] [place] [address], [facility] [phone] documented in this encounter Visit Diagnoses Not on filedocumented in this encounter
--- OUTSIDE RECORDS SUMMARY | 2025-05-29 11:44 | XMS_ITS | Clinical Summary ---
Author Organization [facility] Address [address] [place] [address] Care Team Providers Care Vacuum Caster Name Role Phone Unavailable Primary Care Provider Unavailabl e Source Comments [facility],non-owned Affiliates and Associated Physician Practices is amultiple site organization consisting of ambulatory clinics and hospital sitesin [place], [place], [place] and [place]. This disclosure is being madepursuant to the Care Everywhere program and may not contain all information available regarding this patient. 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 Gender Identity Not on file Sexual Orientation Not on file Plan of Treatment Health Maintenance Due Date Last Done Comments HIV SCREENING 2005 HEPATITIS C SCREENING 05/08/2008 DTAP/TDAP/TD VACCINES (1 - Tdap) 2009 HEPATITIS B VACCINE (1 of 3 - 19+ 3-dose series) 2009 HPV VACCINE (1 - 3-dose SCDM series) 2017 COVID-19 VACCINE ( - 2023-2 5 season) 2024 DEPRESSION SCREENING 10/16/2024 INFLUENZA VACCINE (#1) 2025 ZOSTER VACCINE (1 of 2) 2040 HIB VACCINE Aged Out No longer eligi ble based on patient's age to complete this topic MENINGOCOCCAL (Group B) VACC INE SHARED DECISION-MAKING Aged Out No longer eligibl e based on patient's age to complete this topic MENINGOCOCCAL GROUPS A/C/Y/W VACCINE Aged Out No longer eligible b ased on patient's age to complete this topic PNEUMOCOCCAL VACCINE Aged Out No long er eligible based on patient's age to complete this topic Insurance [employer]
[2025-05-29 18:44] LABS: Alanine Aminotransferase 13 U/L (6-35); Albumin Level 4.5 g/dL (3.5-5.1); Alkaline Phosphatase 63 U/L (38-126); Anion Gap 10 mmol/L (4-12); Aspartate Amino Transferase 36 U/L (14-36); Bilirubin,Total 0.5 mg/dL (0.2-1.3); Blood Urea Nitrogen 20 mg/dL (7-17); Calcium 9.4 mg/dL (8.4-10.2); Carbon Dioxide 23 mmol/L (22-30); Chloride 106 mmol/L (98-107); Estimated Glomerular Filt Rate > 60; Glucose 92 mg/dL (65-110); Potassium 4.8 mmol/L (3.4-5.0); Sodium 139 mmol/L (137-145); Total Protein 7.6 g/dL (6.3-8.2)
== END 2025-05-29 11:30 | disposition home or self-care (01) ==
LOC: ANHBWCLAB 11:31
PROVIDERS: PCP Nurse Practitioner Adult Health; Visit Provider Nurse Practitioner Adult Health
DX: R73.9 Hyperglycemia, unspecified (principal)
CPT/HCPCS: 36415; 80053